=== PATIENT | female | born 1935 | race Caucasian/White ===

== ENCOUNTER → 2016-09-10 | Outpatient (CLI) | payer MEDICARE, OTHER ==
[~2016-09-10] MED LIST: ASP81TEC PO; CALC-656 PO; CEFD300C3 PO; DOCU100T7 PO; DOXY100C2 PO; FLC100T1 PO; HYDR-3583 PO; LEVO750T6 PO; METO-354 PO; MULT-1029 PO; OMEG1CAP51 PO; PREN1TAB39 PO; PRM25T PO; PROP1TAB77 PO; SULF1TAB38 PO; [UNRECOGNIZED DRUG - OTHER] PO
--- OUTSIDE RECORDS SUMMARY | 2016-09-10 14:47 | XMS REPORT | Continuity of Care Document ---
Author Author [facility] Organization [facility] Address Unknown Phone Unavailable Care Team Providers Care Junior Systems Engineer Name Role Phone DRE MCDOWELL DO PCP Insurance Providers Payer Name Policy Number Subscriber Name Relationship [employer] [id number] Anita Shah 18 Self / Same As Patient Comm Crossover Enter Ins Name [id number] Anita Shah 18 Self / Same As Patient Advance Directives Directive Response Recorded Date/Time Advance Directives Yes 04/10/13 11:18pm Health Care Power of Front Clerk No 04/10/13 11:18pm Organ Donor No 04/10/13 11:18pm Problems No problem information available. Medications Current Home Medications Medication Dose Units Route Directions Days/Qty Instructions Start Date Aspirin 81 Mg 81 Mg Oral Daily 03/06/10 Docusate Sodium 100 Mg 200 Mg Oral Daily 04/11/13 Mu-Vits-Min Th/Lycopene/Lutein 1 Each 1 Each Oral Daily 04/11/13 [Move Free Dietary ] 2 Tab Oral Daily TAKES 2 TABLETS OF MOVE FREE DIETARY SUPPLEMENT DAILY 04/11/13 Cefdinir (Omnicef) 300 Mg 1 Each Oral Twice A Day 04/12/13 Past Home Medications Medication Directions Ordered Status Calcium Carbonate/Vitamin D3 1 Each Tablet, 1 Each Oral 03/06/10 Discontinued Vits W-Ca,Fe,Fa(<1MG) 1 Each Tablet, 1 Each Oral 03/06/10 Discontinued Levofloxacin 750 Mg Tablet, 500 Mg Oral Daily 04/02/10 Discontinued Fluconazole 100 Mg Tablet, 1 Each Oral Daily 04/02/10 Discontinued Propoxyphene Hcl/Acetaminophen 1 Tab Tablet, 1 - 2 Each Oral Every 4HRS as needed 04/02/10 Discontinued Metoclopramide Hcl 10 Mg Tab, 1 Each Oral Qid Prn 04/02/10 Discontinued Promethazine Hcl 25 Mg Tablet, 1 Tab Oral Every 8HRS as needed 04/02/10 Discontinued Calcium Carbonate/Vitamin D3 1 Each Tablet, 1 Each Oral Daily 05/22/10 Discontinued Vits W-Ca,Fe,Fa(<1MG) 1 Each Tablet, 1 Each Oral Daily 05/22/10 Discontinued Metoclopramide Hcl 10 Mg Tab, 1 Each Oral Qid Prn 05/22/10 Discontinued [place]-3 Fatty Acids/Fish Oil 1 Each Capsule, 1 Each Oral Daily 09/12/10 Discontinued Acetaminophen/Hydrocodone Bitart 1 Tab Tab, 1 - 2 Ea Oral Q4hr Prn 09/23/10 Discontinued Trimethoprim/Sulfamethoxazole 1 Ea Tablet, 1 Ea Oral Twice A Day 09/23/10 Discontinued Doxycycline Hyclate (Vibramycin) 100 Mg Capsule, 1 Each Oral Twice A Day 23/06 Discontinued Social History Social History Problem Response Recorded Date/Time Alcohol Use Denies Use 04/10/2013 11:25pm Recreational Drug Use No 04/10/2013 11:25pm Recent Foreign Travel No 11/26/2015 12:55pm Sexually Transmitted Disease No 04/10/2013 11:25pm Hospital Discharge Instructions No hospital discharge instructions. Plan of Care Prescriptions See Medication Section Functional Status No functional status results. Allergies, Adverse Reactions, Alerts Allergen Type Severity Reaction Status Last Updated Sulfa (Sulfonamide Antibiotics) ([id number]) Adverse Reaction Mild HIVES Active 04/12/13 Morphine Adverse Reaction hallucinations Active 05/21/10 sulfamethoxazole ([id number]) Allergy Mild Active 04/10/13 Trimethoprim Allergy Mild Active 04/10/13 Immunizations Name Given Type Date of Pneumonia Vaccine 04/11/13 Historical Vital Signs No known vital signs results. Results No known relevant diagnostic tests, laboratory data and/or discharge summary. Procedures No known history of procedures. Encounters Encounter Location Arrival/Admit Date Discharge/Depart Date Attending Provider Discharged Recurring [facility] 12/20/15 10:54am 11:55am DRE MCDOWELL DO
--- NOTE | 2016-09-10 15:18 | Diagnostic Imaging Report ---
PROCEDURE: CT head without contrast. TECHNIQUE: Multiple contiguous axial images were obtained through the brain without the use of intravenous contrast. INDICATION: Vision loss . FINDINGS: There is no intracranial hemorrhage, edema or mass effect. The brain parenchyma appears unremarkable. No hydrocephalus. The visualized portions of the orbits and paranasal sinuses appear unremarkable. IMPRESSION: Unremarkable study. Dictated by: Dictated on workstation # [id number]
--- NOTE | 2016-09-10 15:45 | Diagnostic Imaging Report ---
PROCEDURE: US Carotid Duplex Bilateral. TECHNIQUE: Multiple real-time grayscale images were obtained over the carotid arteries in various projections bilaterally. Additional duplex Doppler and color Doppler images were also obtained. INDICATION: Right eye blindness. FINDINGS: The grayscale images demonstrate mild atherosclerotic plaque with color Doppler demonstrating patency of the common, internal and external carotid arteries bilaterally. There is antegrade flow seen in the vertebral arteries on both sides. Peak systolic velocities in the right ICA are 36, 70, and the 48 cm/s from proximal to distal and on the left 52, 83, and 68 cm/s. ICA/CCA ratios are up to 0.9 on the right and 0.8 on the left. IMPRESSION: Estimated underlying stenoses in the range of 0-40% bilaterally. Dictated by: Dictated on workstation # [id number]
== END ==
LOC: RAD 14:43
PROVIDERS: ATTEND Family Medicine
DX: H34.11 Central retinal artery occlusion, right eye (principal)
CPT/HCPCS: 70450; 93880

== ENCOUNTER → 2016-09-16 | Outpatient (CLI) | payer MEDICARE, OTHER ==
--- OUTSIDE RECORDS SUMMARY | 2016-09-16 13:35 | XMS REPORT | Continuity of Care Document ---
Author Author [facility] Organization [facility] Address Unknown Phone Unavailable Care Team Providers Care Director Of Estate Name Role Phone DRE MCDOWELL DO PCP Insurance Providers Payer Name Policy Number Subscriber Name Relationship [employer] [id number] Anita Shah 19 Self / Same As Patient Comm Crossover Enter Ins Name [id number] Anita Shah 19 Self / Same As Patient Advance Directives Directive Response Recorded Date/Time Advance Directives Yes 04/10/13 11:18pm Health Care Power of Baker Test No 04/10/13 11:18pm Organ Donor No 04/10/13 [...] 1 Each Oral Qid Prn 05/22/10 Discontinued [place]-3 Fatty Acids/Fish Oil 1 Each Capsule, 1 [...] Reaction Status Last Updated Sulfa (Sulfonamide Antibiotics) ([id number]) Adverse Reaction Mild HIVES Active 04/12/13 Morphine Adverse Reaction hallucinations Active 05/21/10 sulfamethoxazole ([id number]) Allergy Mild Active 04/10/13 Trimethoprim Allergy Mild Active 04/10/13 Immunizations Name Given Type Date of Pneumonia Vaccine 04/11/13 Historical Vital Signs No known vital signs results. Results No known relevant diagnostic tests, laboratory data and/or discharge summary. Procedures No known history of procedures. Encounters Encounter Location Arrival/Admit Date Discharge/Depart Date Attending Provider Discharged Recurring [facility] 12/20/15 10:54am 11:55am DRE MCDOWELL DO
--- NOTE | 2016-09-17 09:24 | ECHOCARDIOGRAPHY REPORT ---
PROCEDURE PHYSICIAN: CRISTOFER DAY DATE OF PROCEDURE: 09/16/2016 TWO DIMENSIONAL ECHOCARDIOGRAM REPORT PRIMARY PHYSICIAN: Dr. Fisher OTHER PHYSICIAN: REFERRING PHYSICIAN: ORDERING PHYSICIAN: Dr. Fisher INDICATION FOR THE PROCEDURE: Right retinal artery occlusion. MEASUREMENTS DERIVED VALUES LV DIAMETER (LAX) NORMALS NORMALS Diastolic 4.2 (3.6-5.2) Eject. Fract. (60%+/-6%) Systolic (2.3-3.9) Diastolic Vol. % Shortening (0.22-0.42) Systolic Vol. Aortic Root 3.6 IVS THICKNESS Diastolic 0.9 (0.6-1.1) LVPW THICKNESS Diastolic 1 (0.6-1.1) LA DIAMETER Systolic 3.4 (2.1-3.7) DESCRIPTION: Two-dimensional echocardiography showed normal global left ventricular systolic function with normal wall motion. Aortic, mitral and tricuspid valve leaflets show good leaflet excursion. There is no significant pericardial effusion. Chamber sizes appear to be within normal limits. There is no evidence of any significant intracardiac thrombus on this transthoracic echocardiographic study. However, the study is not adequate to exclude intracardiac thrombus. There is mild aortic valve sclerosis and calcification. Doppler imaging shows trivial to mild mitral and tricuspid regurgitation. There is no Doppler evidence of significant valvular stenosis. Pulmonary artery systolic pressure is estimated to be 25 to 30 mmHg. Mitral inflow is suggestive of grade I diastolic dysfunction of the left ventricle. There is no Doppler evidence of any significant valvular stenosis. Good subcostal views are not seen on this study. Inferior vena cava does not appear to be dilated. Pulmonary artery systolic pressure is estimated to be 25 to 30 mmHg. CONCLUSIONS: 1. Normal global left ventricular systolic function with an ejection fraction of approximately 60%. 2. Aortic valve sclerosis, mild to moderate, without evidence of any significant valvular stenosis. 3. Trivial to mild mitral and tricuspid regurgitation. 4. Mild diastolic dysfunction of the left ventricle is suggested on this study. 5. Pulmonary artery systolic pressure is estimated 25 to 30 mmHg. Job ID: [id number] Dictated Date: 09/16/2016 17:23:43 Straw Hat Machine Operator Date: 09/17/2016 09:15:18 / leslie
== END ==
LOC: CARD 11:44
PROVIDERS: ATTEND Family Medicine
DX: H34.11 Central retinal artery occlusion, right eye (principal)
CPT/HCPCS: 93306

== ENCOUNTER 2017-01-05 23:25 | Inpatient (IN) | payer MEDICARE, OTHER ==
[~2017-01-05] VITALS: Ht 152.4 cm; Wt 76.2 kg
[2017-01-05] MEDS ORDERED: fentaNYL INJECTION 100 MCG/2 ML AMP IVP STA (23:28)
[2017-01-05] MEDS ORDERED: NS IV 500 ML 500 ML IV ONE (23:28)
[2017-01-05 23:36] LABS: BASOPHILS % (AUTO) 0 % (0-10); EOSINOPHILS # (AUTO) 0.2 10^3/uL (0.0-0.3); EOSINOPHILS % (AUTO) 3 % (0-10); LYMPHOCYTES # (AUTO) 2.2 X 10^3 (1.0-4.0); LYMPHOCYTES % (AUTO) 35 % (12-44); MEAN CORPUSCULAR HEMOGLOBIN 31 PG (25-34); MEAN CORPUSCULAR HGB CONC 32 G/DL (32-36); MEAN CORPUSCULAR VOLUME 95 FL (80-99); MEAN PLATELET VOLUME 10.6 FL (7.4-10.4); MONOCYTES # (AUTO) 0.6 X 10^3 (0.0-1.0); MONOCYTES % (AUTO) 9 % (0-12); NEUTROPHILS # (AUTO) 3.5 X 10^3 (1.8-7.8); NEUTROPHILS % (AUTO) 54 % (42-75); PLATELET COUNT 262 10^3/uL (130-400); RED BLOOD COUNT 4.29 10^6/uL (4.35-5.85); RED CELL DISTRIBUTION WIDTH 14.1 % (10.0-14.5); WHITE BLOOD COUNT 6.5 10^3/uL (4.3-11.0)
[2017-01-05 23:44] LABS: BILIRUBIN,URINE NEGATIVE (NEGATIVE); KETONES,URINE NEGATIVE (NEGATIVE); LEUKOCYTE ESTERASE ,URINE 2+ (NEGATIVE); NITRITE,URINE NEGATIVE (NEGATIVE); PH,URINE 6.5 (5-9); PROTEIN,URINE NEGATIVE (NEGATIVE); UROBILINOGEN,URINE NORMAL (NORMAL)
[2017-01-05 23:51] LABS: HYALINE CASTS, URINE RARE /LPF; SQUAMOUS EPITHELIAL CELL,UR RARE /HPF; WBC,URINE 0-2 /HPF
[2017-01-05 23:55] LABS: ALBUMIN 3.9 G/DL (3.2-4.5); BILIRUBIN,TOTAL 0.8 MG/DL (0.1-1.0); CALCIUM 9.4 MG/DL (8.5-10.1); CREATININE SERUM 1.01 MG/DL (0.60-1.30); MAGNESIUM 2.3 MG/DL (1.8-2.4); TOTAL PROTEIN 6.4 G/DL (6.4-8.2)
[2017-01-06] VITALS (9 sets, daily range): BP systolic 131–190; BP diastolic 69–89
--- NOTE | 2017-01-06 00:04 | ED Abdominal Pain ---
General Chief Complaint: Abdominal/GI Problems Stated Complaint: ABD PAIN Nursing Triage Note: upper abdominal pain radiating to back Sepsis Screen: No Definite Risk Source of Information: Patient Exam Limitations: No Limitations History of Present Illness Time Seen By Provider: 23:28 Initial Comments Here by EMS with complaint of abdominal pain left lower and central that radiates to her back and shoulder blades. Also has some pain in the upper abdominal quadrants. Does complain of nausea without vomiting. Denies dysuria. Denies blood in bowel or stool. Timing/Duration: 4-6 Hours Severity/Quality: Moderate Location: LLQ, Suprapubic Radiation: LUQ, Back Activities at Onset: None Modifying Factors: Worsens With Movement Associated Symptoms: No Back Pain, No Chest Pain, No Fever/Chills, Nausea/ Vomiting, No Weakness Allergies and Home Medications Allergies Coded Allergies: Sulfamethoxazole (Verified Allergy, Mild, 04/10/13) trimethoprim (Verified Allergy, Mild, 04/10/13) Sulfa (Sulfonamide Antibiotics) (Verified Adverse Reaction, Mild, HIVES, ) morphine (Unverified Adverse Reaction, hallucinations, 05/21/10) Home Medications Aspirin 81 Mg Tabec, 81 MG PO DAILY, (Reported) Cefdinir 300 Mg Capsule, 1 EACH PO BID, #10 Prescribed by: NERI RYAN on 04/12/13 1536 Docusate Sodium 100 Mg Tablet, 200 MG PO DAILY, (Reported) Mu-Vits-Min Th/Lycopene/Lutein 1 Each Tablet, 1 EACH PO DAILY, (Reported) [Move Free Dietary ] , 2 TAB PO DAILY, (Reported) TAKES 2 TABLETS OF MOVE FREE DIETARY SUPPLEMENT DAILY Review of Systems Constitutional: see HPI, No chills, No fever EENTM: No Symptoms Reported Respiratory: No Symptoms Reported Cardiovascular: No Symptoms Reported Gastrointestinal: See HPI, Abdominal Pain, Denies Constipated, Denies Diarrhea , Nausea, Denies Rectal Bleeding, Denies Vomiting Genitourinary: No Symptoms Reported Musculoskeletal: no symptoms reported Skin: no symptoms reported Psychiatric/Neurological: No Symptoms Reported Endocrine: No Symptoms Reported All Other Systems Reviewed Negative Unless Noted: Yes Past Oljbzqa-Zzxhqo-Mnmvwv Hx Patient Social History Alcohol Use: Denies Use Recreational Drug Use: No Smoking Status: Never a Smoker 2nd Hand Smoke Exposure: No Recent Foreign Travel: No Contact w/Someone Who Travel: No Recent Infectious Disease Expo: No Recent Hopitalizations: No Immunizations Up To Date Date of Pneumonia Vaccine: Apr 11, 2013 Seasonal Allergies Seasonal Allergies: No Surgeries HX Surgeries: Yes (HERNIAS, VEINS TAKEN OUT OF RT LEG) Respiratory Hx Respiratory Disorders: No Cardiovascular Hx 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 ) Neurological Hx Neurological Disorders: No Reproductive System : No Hx Reproductive Disorders: No Sexually Transmitted Disease: 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 Genitourinary Hx Genitourinary Disorders: Yes Genitourinary Disorders: UTI-Chronic Gastrointestinal Hx Gastrointestinal Disorders: Yes Gastrointestinal Disorders: Gastroesophageal Reflux Musculoskeletal Hx Musculoskeletal Disorders: Yes Musculoskeletal Disorders: Arthritis Endocrine Hx Endocrine Disorders: No HEENT HX ENT Disorders: Yes (IMPLANT RIGHT EYE- REMOVAL OF CATARACT ) HEENT Disorders: Macular Degeneration Cancer Hx Cancer: No Psychosocial Hx Psychiatric Problems: No Integumentary HX Skin/Integumentary Disorder: No Blood Transfusions Hx Blood Disorders: No Reviewed Nursing Assessment Reviewed/Agree w Nursing PMH: Yes Family Medical History Significant Family History: No Pertinent Family Hx Physical Exam Vital Signs VS - Last 72 Hours, by Label 01/05/17 01/06/17 23:28 00:46 Temp 98.5 Pulse 80 77 Resp 18 16 B/P (MAP) 193/85 163/73 Pulse Ox 99 98 O2 Delivery Room Air Room Air Capillary Refill : Less Than 3 Seconds General Appearance: WD/WN, no apparent distress HEENT: PERRL/EOMI, pharynx normal Neck: full range of motion, supple Respiratory: lungs clear, normal breath sounds Cardiovascular: regular rate, rhythm, no murmur Peripheral Pulses: 2+ Dorsalis Pedis (R), 2+ Left Dors-Pedis (L), 2+ Radial Pulses (R), 2+ Radial Pulses (L) Gastrointestinal: soft, No guarding, No rebound, tenderness (suprapubic and left lower quadrant as well as left upper quadrant) Extremities: non-tender, normal inspection Back: normal inspection, no CVA tenderness, no vertebral tenderness Neurologic/Psychiatric: alert, oriented x 3 Skin: normal color, warm/dry Progress/Results/Core Measures Results/Orders Lab Results Laboratory Tests Test 01/05/17 23:30 01/05/17 23:35 Range/Units White Blood Count 6.5 4.3-11.0 10^3/uL Red Blood Count 4.29 L 4.35-5.85 10^6/uL Hemoglobin 13.1 11.5-16.0 G/DL Hematocrit 41 35-52 % Mean Corpuscular Volume 95 80-99 FL Mean Corpuscular Hemoglobin 31 25-34 PG Mean Corpuscular Hemoglobin Concent 32 32-36 G/DL Red Cell Distribution Width 14.1 10.0-14.5 % Platelet Count 262 130-400 10^3/uL Mean Platelet Volume 10.6 H 7.4-10.4 FL Neutrophils (%) (Auto) 54 42-75 % Lymphocytes (%) (Auto) 35 12-44 % Monocytes (%) (Auto) 9 0-12 % Eosinophils (%) (Auto) 3 0-10 % Basophils (%) (Auto) 0 0-10 % Neutrophils # (Auto) 3.5 1.8-7.8 X 10^3 Lymphocytes # (Auto) 2.2 1.0-4.0 X 10^3 Monocytes # (Auto) 0.6 0.0-1.0 X 10^3 Eosinophils # (Auto) 0.2 0.0-0.3 10^3/uL Basophils # (Auto) 0.0 0.0-0.1 10^3/uL Sodium Level 142 135-145 MMOL/L Potassium Level 4.0 3.6-5.0 MMOL/L Chloride Level 106 98-107 MMOL/L Carbon Dioxide Level 24 21-32 MMOL/L Anion Gap 12 5-14 MMOL/L Blood Urea Nitrogen 17 7-18 MG/DL Creatinine 1.01 0.60-1.30 MG/DL Estimat Glomerular Filtration Rate 53 BUN/Creatinine Ratio 17 Glucose Level 109 H 70-105 MG/DL Calcium Level 9.4 8.5-10.1 MG/DL Magnesium Level 2.3 1.8-2.4 MG/DL Total Bilirubin 0.8 0.1-1.0 MG/DL Aspartate Amino Transf (AST/SGOT) 17 5-34 U/L Alanine Aminotransferase (ALT/SGPT) 13 0-55 U/L Alkaline Phosphatase 52 40-136 U/L Total Protein 6.4 6.4-8.2 G/DL Albumin 3.9 3.2-4.5 G/DL Amylase Level 94 25-125 U/L Lipase 48 8-78 U/L Urine Color YELLOW Urine Clarity CLEAR Urine pH 6.5 5-9 Urine Specific [place] 1.010 L 1.016-1.022 Urine Protein NEGATIVE NEGATIVE Urine Glucose (UA) NEGATIVE NEGATIVE Urine Ketones NEGATIVE NEGATIVE Urine Nitrite NEGATIVE NEGATIVE Urine Bilirubin NEGATIVE NEGATIVE Urine Urobilinogen NORMAL NORMAL MG/DL Urine Leukocyte Esterase 2+ H NEGATIVE Urine RBC (Auto) NEGATIVE NEGATIVE Urine RBC NONE /HPF Urine WBC 0-2 /HPF Urine Squamous Epithelial Cells RARE /HPF Urine Crystals NONE /LPF Urine Bacteria TRACE /HPF Urine Casts PRESENT /LPF Urine Hyaline Casts RARE /LPF Urine Mucus NEGATIVE /LPF Urine Culture Indicated NO My Orders Orders - ARMINDA CALDERON MD Amylase (01/05/17 23:28) Cbc With Automated Diff (01/05/17:28) Comprehensive Metabolic Panel (01/05/17:28) Lipase (01/05/17 23:28) Magnesium (01/05/17 23:28) Ua Culture If Indicated (01/05/17 23:28) Saline Lock/Iv-Start (01/05/17 23:28) Ns Iv 500 Ml (Sodium Chloride 0.9%) (01/05/17 23:28) Fentanyl Injection (Sublimaze Injection (01/05/17 23:28) Ct Abdomen/Pelvis W (01/06/17 00:18) Ns Iv 500 Ml (Sodium Chloride 0.9%) (01/06/17 00:18) Iohexol Injection (Omnipaque 350 Mg/Ml 1 (01/06/17 00:45) Ns (Ivpb) (Sodium Chloride 0.9% Ivpb Bag (01/06/17 00:45) Fentanyl Injection (Sublimaze Injection (01/06/17 01:09) Medications Given in ED Current Medications Medications Dose Ordered Sig/Semaj Route Start Time Stop Time Status Last Admin Dose Admin Iohexol 100 ml ONCE ONCE IV 01/06/17 00:45 01/06/17 00:46 DC 01/06/17 00:39 100 ML Sodium Chloride 100 ml ONCE ONCE IV 01/06/17 00:45 01/06/17 00:46 DC 01/06/17 00:39 80 ML Sodium Chloride 500 ml @ 0 mls/hr Q0M ONCE IV 01/05/17 23:28 01/05/17 23:30 DC 01/05/17 23:36 0 MLS/HR Sodium Chloride 500 ml @ 0 mls/hr Q0M ONCE IV 01/06/17 00:18 01/06/17 00:19 DC 01/06/17 00:45 0 MLS/HR Vital Signs/I&O Vital Sign - Last 12Hours 01/05/17 01/06/17 23:28 00:46 Temp 98.5 Pulse 80 77 Resp 18 16 B/P (MAP) 193/85 163/73 Pulse Ox 99 98 O2 Delivery Room Air Room Air Blood Pressure Mean: 121 Progress Note : Progress Note Seen and evaluated on arrival by EMS. IV by EMS. Labs, UA, normal saline 500 mL bolus. Patient received 4 mg of Zofran IV by EMS and that did help with her nausea but still has pain. Fentanyl 50 g IV ordered. Anticipate CT scan pending labs. Monitor patient. 0108: CT results reviewed. Patient still with some pain. Concerns for small bowel obstruction. Patient mud mill tender along the left abdomen. Fentanyl 25 g IV. Case discussed with Dr. Fisher. Admit, inpatient status for small bowel obstruction. Consult surgeon. Dr. Bill dickey. Patient agrees to admission. Diagnostic Imaging Diagonstic Imaging: CT Plain Films/CT/US/NM/MRI: abdomen, pelvis Comments Clustering of some distended small bowel loops may be from evolving bowel obstruction. Edema/fluid in the knees and tearing. No extraluminal air or pneumatosis. Reviewed: Reviewed Night [facility] Study, Reviewed by Me Departure Communication Time/Spoke to Admitting Phy: 01:08 Time/Spoke to Consulting Physi: 01:15 Impression Impression: Primary Impression: Small bowel obstruction Disposition: 09 ADMITTED INPATIENT Condition: Stable Decision to Admit Reason: Admit from ER (General) Decision to Admit/Date: Jan 06, 2017 Time/Decision to Admit Time: 01:08 Departure-Patient Inst. Referrals: DRE FISHER DO (PCP/Family) Primary Care Physician ARMINDA CALDERON MD Jan 06, 2017 00:04
[2017-01-06] MEDS ORDERED: NS IV 500 ML 500 ML IV ONE (00:18)
[2017-01-06] MEDS ORDERED: IOHEXOL 350 MG/ML 100 ML (OMNIPAQUE 350) VIAL IV ONE (00:45)
[2017-01-06] MEDS ORDERED: NS 100 ML (IVPB) BAG IV ONE (00:45)
[2017-01-06] MEDS ORDERED: fentaNYL INJECTION 100 MCG/2 ML AMP IVP STA (01:09)
[2017-01-06] MEDS ORDERED: NS IV 1000 ML 1,000 ML ONE (01:50)
[2017-01-06] MEDS ORDERED: CATHETER FLUSH 10 ML SYR IV PRN (04:45)
[2017-01-06] MEDS: CATHETER FLUSH 10 ML SYR IV SCH ×3 (05:08→21:24)
[2017-01-06 05:47] LABS: BASOPHILS % (AUTO) 1 % (0-10); EOSINOPHILS # (AUTO) 0.1 10^3/uL (0.0-0.3); EOSINOPHILS % (AUTO) 1 % (0-10); LYMPHOCYTES # (AUTO) 1.5 X 10^3 (1.0-4.0); LYMPHOCYTES % (AUTO) 34 % (12-44); MEAN CORPUSCULAR HEMOGLOBIN 31 PG (25-34); MEAN CORPUSCULAR HGB CONC 32 G/DL (32-36); MEAN CORPUSCULAR VOLUME 95 FL (80-99); MEAN PLATELET VOLUME 10.7 FL (7.4-10.4); MONOCYTES # (AUTO) 0.4 X 10^3 (0.0-1.0); MONOCYTES % (AUTO) 9 % (0-12); NEUTROPHILS # (AUTO) 2.4 X 10^3 (1.8-7.8); NEUTROPHILS % (AUTO) 55 % (42-75); PLATELET COUNT 226 10^3/uL (130-400); RED BLOOD COUNT 4.02 10^6/uL (4.35-5.85); WHITE BLOOD COUNT 4.5 10^3/uL (4.3-11.0)
[2017-01-06 06:11] LABS: ALANINE AMINOTRANSFERASE 12 U/L (0-55); ALBUMIN 3.3 G/DL (3.2-4.5); ANION GAP 8 MMOL/L (5-14); ASPARTATE AMINO TRANSFERASE 13 U/L (5-34); BILIRUBIN,TOTAL 0.8 MG/DL (0.1-1.0); BLOOD UREA NITROGEN 13 MG/DL (7-18); BUN/CREATININE RATIO 15; CALCIUM 8.3 MG/DL (8.5-10.1); CARBON DIOXIDE 22 MMOL/L (21-32); CHLORIDE 111 MMOL/L (98-107); CREATININE SERUM 0.85 MG/DL (0.60-1.30); GFR ESTIMATED > 60; GLUCOSE 92 MG/DL (70-105); POTASSIUM 4.2 MMOL/L (3.6-5.0); SODIUM 141 MMOL/L (135-145); TOTAL PROTEIN 5.3 G/DL (6.4-8.2)
--- NOTE | 2017-01-06 07:28 | Diagnostic Imaging Report ---
PROCEDURE: CT abdomen and pelvis with contrast. TECHNIQUE: Multiple contiguous axial images were obtained through the abdomen and pelvis after administration of intravenous contrast. INDICATION: Upper abdominal pain. Comparison is made to the examination of 04/10/2013. 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 The gallbladder is surgically absent. Extrapelvic biliary ductal dilatation is similar to the previous exam. There are occasional calcified granulomas in the spleen. No pancreatic, adrenal gland or renal lesion is detected. There is mild to moderate dilatation of fluid containing small bowel in the left abdomen. This appears to transition to decompressed loops in the distal ileum. Note is made of small hiatal hernia. No focal fluid collection is identified in the abdomen or pelvis. IMPRESSION: [id number] dilatation of fluid-filled small bowel extending from the jejunum to distal ileum. This could be related to localized ileus or partial distal small bowel obstruction. Small bowel series may be of value. Dictated by: Dictated on workstation # [id number]
[2017-01-06] MEDS ORDERED: CHOL100045 PO (09:33)
[2017-01-06] MEDS ORDERED: VITA1CAP PO (09:33)
--- NOTE | 2017-01-06 11:18 | Consultation ---
History of Present Illness History of Present Illness Patient Consulted On(len/time) 01/06/17 11:15 Reason for Visit: acute onset of central abdominal pain History of Present Illness I began asked by Dr. Fisher to see this lady admitted with acute onset of central abdominal pain with CT scan showing features of distal small bowel obstruction. 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 Allergies and Home Medications Allergies Coded Allergies: sulfamethoxazole (Verified Allergy, Mild, 04/10/13) trimethoprim (Verified Allergy, Mild, 04/10/13) Sulfa (Sulfonamide Antibiotics) (Verified Adverse Reaction, Mild, HIVES, ) morphine (Unverified Adverse Reaction, Unknown, hallucinations, 01/06/17) Home Medications Aspirin 81 Mg Tabec, 81 MG PO DAILY, (Reported) Cholecalciferol (Vitamin D3) 1,000 Unit Tablet, 1,000 UNIT PO DAILY, (Reported) Docusate Sodium 100 Mg Tablet, 200 MG PO DAILY, (Reported) Mu-Vits-Min Th/Lycopene/Lutein 1 Each Tablet, 1 EACH PO DAILY, (Reported) Vitamin B Complex 1 Each Capsule, 1 EACH PO DAILY, (Reported) Past Wodigri-Imiwjo-Qwzpsn Hx Patient Social History Alcohol Use: Denies Use Recreational Drug Use: No Smoking Status: Never a Smoker 2nd Hand Smoke Exposure: No Recent Foreign Travel: No Contact w/Someone Who Travel: No Recent Infectious Disease Expo: No Recent Hopitalizations: No Physical Abuse Screen: No Sexual Abuse: No Immunizations Up To Date PED Vaccines UTD: No Date of Pneumonia Vaccine: May 08, 2015 Seasonal Allergies Seasonal Allergies: No Surgeries HX Surgeries: Yes (HERNIAS, VEINS TAKEN OUT OF RT LEG) Surgeries: Gallbladder, Hysterectomy Respiratory Hx Respiratory Disorders: No Cardiovascular Hx 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 ) Neurological Hx Neurological Disorders: No Reproductive System : No Hx Reproductive Disorders: No Sexually 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 Genitourinary Hx Genitourinary Disorders: Yes Genitourinary Disorders: UTI-Chronic Gastrointestinal Hx Gastrointestinal Disorders: Yes Gastrointestinal Disorders: Gastroesophageal Reflux, Obstructive Bowel Musculoskeletal Hx Musculoskeletal Disorders: Yes Musculoskeletal Disorders: Arthritis Endocrine Hx Endocrine Disorders: No HEENT HX ENT Disorders: Yes (IMPLANT RIGHT EYE- REMOVAL OF CATARACT ) HEENT Disorders: Macular Degeneration Loss of Vision: Bilateral Hearing Impairment: Denies Cancer Hx Cancer: No Psychosocial Hx Psychiatric Problems: No Integumentary HX Skin/Integumentary Disorder: No Blood Transfusions Hx Blood Disorders: No Adverse Reaction to a Blood Tr: No Reviewed Nursing Assessment Reviewed/Agree w Nursing PMH: Yes Family Medical History Significant Family History: No Pertinent Family Hx Family Medial History: Colon cancer G8 SISTER, G8 SISTER, G8 BROTHER, G8 BROTHER, G8 BROTHER, FH: breast cancer G8 SISTER FH: lung cancer G8 BROTHER, FH: myocardial infarction 19 FATHER, , Age:74 FH: thyroid cancer DAUGHTER Review of Systems-General Date Seen by Provider: Jan 06, 2017 Time Seen by Provider: 07:55 Constitutional: no symptoms reported EENTM: no symptoms reported Respiratory: no symptoms reported Cardiovascular: no symptoms reported Gastrointestinal: abdominal pain (LLQ), loss of appetite Genitourinary: no symptoms reported Skin: no symptoms reported Psychiatric/Neurological: No Symptoms Reported Physical Exam-General Problems Physical Exam Vital Signs Vital Sign - Last 12Hours 01/05/17 01/06/17 23:28 01:50 Temp 98.5 Pulse 80 Resp 18 B/P (MAP) 193/85 Pulse Ox 99 O2 Delivery Room Air O2 Flow Rate 0.00 Capillary Refill : Less Than 3 Seconds General Appearance: mild distress Neck: full range of motion Respiratory: lungs clear Cardiovascular: regular rate, rhythm Gastrointestinal: soft Extremities: normal range of motion Neurologic/Psychiatric: alert, oriented x 3 Skin: warm/dry Comments Lower midline scar without an incisional hernia. No abdominal distention. No tenderness. Assessment/Plan Assessment/Plan Admission Diagnosis/Plan Lady with radiologic evidence of distal small bowel obstruction. Possibly adhesive in nature. Will treat conservatively with nasogastric decompression. Subsequently, a contrast small bowel study will be obtained Clinical Quality Measures DVT/VTE Risk/Contraindication: Risk Factor Score Per Nursin RFS Level Per Nursing on Admit: 4+=Very High CHEN DE LA FUENTE MD Jan 06, 2017 11:18
[2017-01-06] MEDS ORDERED: LORazepam INJ 2 MG/ML (ATIVAN) VIAL IVP STA (12:04)
[2017-01-06] MEDS: NS IV 1000 ML 1,000 ML IV SCH ×3 (12:13→22:09)
[2017-01-06] MEDS ORDERED: CHLORASEPTIC SPRAY 177 ML LIQUID MC PRN (13:45)
[2017-01-06] MEDS: fentaNYL INJECTION 100 MCG/2 ML AMP IV PRN ×2 (16:53→21:43)
[2017-01-06] MEDS ORDERED: meTOprolol 5 MG/5 ML (LOPRESSOR) VIAL IV NR (19:15)
--- NOTE | 2017-01-06 19:20 | History & Physicial ---
History of Present Illness History of Present Illness Reason for visit/HPI This is an 81 year old female who presented to the emergency room with complaints of abdominal pain. The pain started at about 8pm on 01/05/17 in the upper abdomen after she had consumed a snack of yogurt and 6 cookies. She stated that the pain was initially across her upper abdomen radiating to her back around both sides but then the pain moved down to her lower abdominal area. She described the pain as coming in waves like labor pains. She did have some nausea but no vomiting. She reported that her last bowel movement was on 01/05/17 at about 3PM. She has a history of extensive abdominal surgery in the past due to iatrogenic bowel injury during a hysterectomy. A CT scan done in the emergency room showed a distal small bowel obstruction. The patient will be admitted for gut rest, abdominal decompression and surgical consultation. Date of Admission Jan 06, 2017 at 01:12 Time Seen by Provider: 08:45 I consulted on this patient on 01/06/17 19:15 Attending Physician Jessica Fisher DO Admitting Physician Jessica Fisher DO Consult Allergies and Home Medications Allergies Coded Allergies: sulfamethoxazole (Verified Allergy, Mild, 04/10/13) trimethoprim (Verified Allergy, Mild, 04/10/13) Sulfa (Sulfonamide Antibiotics) (Verified Adverse Reaction, Mild, HIVES, ) morphine (Unverified Adverse Reaction, Unknown, hallucinations, 01/06/17) Home Medications Aspirin 81 Mg Tabec, 81 MG PO DAILY, (Reported) Cholecalciferol (Vitamin D3) 1,000 Unit Tablet, 1,000 UNIT PO DAILY, (Reported) Docusate Sodium 100 Mg Tablet, 200 MG PO DAILY, (Reported) Mu-Vits-Min Th/Lycopene/Lutein 1 Each Tablet, 1 EACH PO DAILY, (Reported) Vitamin B Complex 1 Each Capsule, 1 EACH PO DAILY, (Reported) Past Crkmnhy-Iuckgt-Iqsiam Hx Patient Social History Alcohol Use: Denies Use Recreational Drug Use: No Smoking Status: Never a Smoker 2nd Hand Smoke Exposure: No Physical Abuse Screen: No Sexual Abuse: No Recent Foreign Travel: No Contact w/other who traveled: No Recent Hopitalizations: No Recent Infectious Disease Expo: No Immunizations Up To Date Date of Pneumonia Vaccine: May 08, 2015 Seasonal Allergies Seasonal Allergies: No Surgeries HX Surgeries: Yes (HERNIAS, VEINS TAKEN OUT OF RT LEG) Surgeries: Gallbladder, Hysterectomy Respiratory Hx Respiratory Disorders: No Cardiovascular Hx 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 ) Neurological Hx Neurological Disorders: No Reproductive System : No Hx Reproductive Disorders: No Sexually Transmitted Disease: No Genitourinary Hx Genitourinary Disorders: Yes Genitourinary Disorders: UTI-Chronic Gastrointestinal Hx Gastrointestinal Disorders: Yes Gastrointestinal Disorders: Gastroesophageal Reflux, Obstructive Bowel Musculoskeletal Hx Musculoskeletal Disorders: Yes Musculoskeletal Disorders: Arthritis Endocrine Hx Endocrine Disorders: No HEENT HX ENT Disorders: Yes (IMPLANT RIGHT EYE- REMOVAL OF CATARACT ) HEENT Disorders: Macular Degeneration Loss of Vision: Bilateral Hearing Impairment: Denies Cancer Hx Cancer: No Psychosocial Hx Psychiatric Problems: No Integumentary HX Skin/Integumentary Disorder: No Blood Transfusions Hx Blood Disorders: No Adverse Reaction to a Blood Tr: No Reviewed Nursing Assessment Reviewed/Agree w Nursing PMH: Yes Family Medical History Significant Family History: No Pertinent Family Hx Family Hx: Colon cancer G8 SISTER, G8 SISTER, G8 BROTHER, G8 BROTHER, G8 BROTHER, FH: breast cancer G8 SISTER FH: lung cancer G8 BROTHER, FH: myocardial infarction 19 FATHER, , Age:74 FH: thyroid cancer DAUGHTER Constitutional: weakness EENTM: No blurred vision, No dental problems, No double vision, No ear discharge, No ear pain, No epistaxis, No eye pain, No hearing loss, No hoarseness, No mouth pain, No mouth swelling, No no symptoms reported, No nose congestion, No nose pain, No other, No see HPI, No tearing, No throat pain, No throat swelling, No vision loss Respiratory: No no symptoms reported, No see HPI, No cough, No dyspnea on exertion, No hemoptysis, No orthopnea, No phlegm, No short of breath, No stridor , No wheezing, No other Cardiovascular: No no symptoms reported, No see HPI, No chest pain, No edema, No Hx of Intervention, No palpitations, No syncope, No vascular heart diseas, No other Gastrointestinal: abdominal pain, nausea Genitourinary: No no symptoms reported, No see HPI, No decreased output, No discharge, No dysuria, No frequency, No hematuria, No hesitancy, No incontinence , No nocturia, No pain, No other Musculoskeletal: back pain Skin: No no symptoms reported, No see HPI, No change in color, No change in hair/nails, No dryness, No hx of skin cancer, No lesions, No lumps, No pruritus , No rash, No other Psychiatric/Neurological: Weakness Physical Exam Vital Signs Vital Sign - Last 12Hours 01/05/17 01/06/17 23:28 01:50 Temp 98.5 Pulse 80 Resp 18 B/P (MAP) 193/85 Pulse Ox 99 O2 Delivery Room Air O2 Flow Rate 0.00 Capillary Refill : Less Than 3 Seconds General Appearance: No Apparent Distress HEENT: Normal ENT Inspection Neck: Non Tender, Supple Respiratory: Lungs Clear Cardiovascular: Regular Rate, Rhythm, Systolic Murmur, Gallop/S4 Gastrointestinal: Soft, Abnormal Bowel Sounds (hypoactive), Tenderness (LLQ and suprapubic) Rectal: Deferred Back: No CVA Tenderness Extremity: Non Tender, No Calf Tenderness, No Pedal Edema Neurologic/Psychiatric: Alert, Oriented x3 Skin: Normal Color, Warm/Dry Comments Laboratory Tests 01/05/17 23:30: White Blood Count 6.5, Red Blood Count 4.29L, Hemoglobin 13.1, Hematocrit 41, Mean Corpuscular Volume 95, Mean Corpuscular Hemoglobin 31, Mean Corpuscular Hemoglobin Concent 32, Red Cell Distribution Width 14.1, Platelet Count 262, Mean Platelet Volume 10.6H, Neutrophils (%) (Auto) 54, Lymphocytes (%) (Auto) 35 , Monocytes (%) (Auto) 9, Eosinophils (%) (Auto) 3, Basophils (%) (Auto) 0, Neutrophils # (Auto) 3.5, Lymphocytes # (Auto) 2.2, Monocytes # (Auto) 0.6, Eosinophils # (Auto) 0.2, Basophils # (Auto) 0.0, Sodium Level 142, Potassium Level 4.0, Chloride Level 106, Carbon Dioxide Level 24, Anion Gap 12, Blood Urea Nitrogen 17, Creatinine 1.01, Estimat Glomerular Filtration Rate 53, BUN/ Creatinine Ratio 17, Glucose Level 109H, Calcium Level 9.4, Magnesium Level 2.3 , Total Bilirubin 0.8, Aspartate Amino Transf (AST/SGOT) 17, Alanine Aminotransferase (ALT/SGPT) 13, Alkaline Phosphatase 52, Total Protein 6.4, Albumin 3.9, Amylase Level 94, Lipase 48 01/05/17 23:35: Urine Color YELLOW, Urine Clarity CLEAR, Urine pH 6.5, Urine Specific [place] 1.010L, Urine Protein NEGATIVE, Urine Glucose (UA) NEGATIVE, Urine Ketones NEGATIVE, Urine Nitrite NEGATIVE, Urine Bilirubin NEGATIVE, Urine Urobilinogen NORMAL, Urine Leukocyte Esterase 2+H, Urine RBC (Auto) NEGATIVE, Urine RBC NONE , Urine WBC 0-2, Urine Squamous Epithelial Cells RARE, Urine Crystals NONE, Urine Bacteria TRACE, Urine Casts PRESENT, Urine Hyaline Casts RARE, Urine Mucus NEGATIVE, Urine Culture Indicated NO 01/06/17 05:05: White Blood Count 4.5, Red Blood Count 4.02L, Hemoglobin 12.3, Hematocrit 38, Mean Corpuscular Volume 95, Mean Corpuscular Hemoglobin 31, Mean Corpuscular Hemoglobin Concent 32, Red Cell Distribution Width 14.0, Platelet Count 226, Mean Platelet Volume 10.7H, Neutrophils (%) (Auto) 55, Lymphocytes (%) (Auto) 34 , Monocytes (%) (Auto) 9, Eosinophils (%) (Auto) 1, Basophils (%) (Auto) 1, Neutrophils # (Auto) 2.4, Lymphocytes # (Auto) 1.5, Monocytes # (Auto) 0.4, Eosinophils # (Auto) 0.1, Basophils # (Auto) 0.0, Sodium Level 141, Potassium Level 4.2, Chloride Level 111H, Carbon Dioxide Level 22, Anion Gap 8, Blood Urea Nitrogen 13, Creatinine 0.85, Estimat Glomerular Filtration Rate > 60, BUN/ Creatinine Ratio 15, Glucose Level 92, Calcium Level 8.3L, Total Bilirubin 0.8, Aspartate Amino Transf (AST/SGOT) 13, Alanine Aminotransferase (ALT/SGPT) 12, Alkaline Phosphatase 43, Total Protein 5.3L, Albumin 3.3 Assessment/Plan Assessment and Plan 1. Distal Small Bowel Obstruction--gut rest, decompression with NG tube, pain control, SBFT per surgery, surgery consult 2. Hypertension--will do IV lopressor since NPO Problems: Clinical Quality Measures DVT/VTE Risk/Contraindication: Risk Factor Score Per Nursin RFS Level Per Nursing on Admit: 4+=Very High JESSICA FISHER DO Jan 06, 2017 19:20
[2017-01-06] MEDS: ONDANSETRON 4 MG/2 ML (SDV) Z0FRAN IV PRN ×2 (19:50→23:49)
[2017-01-06] MEDS: meTOprolol 5 MG/5 ML (LOPRESSOR) VIAL IV SCH (23:50)
[2017-01-07] MEDS: fentaNYL INJECTION 100 MCG/2 ML AMP IV PRN ×2 (03:13→06:18)
[2017-01-07] MEDS: ONDANSETRON 4 MG/2 ML (SDV) Z0FRAN IV PRN (03:50)
[2017-01-07 04:45] VITALS: BP 146/83
[2017-01-07] MEDS: meTOprolol 5 MG/5 ML (LOPRESSOR) VIAL IV SCH ×3 (05:45→18:31)
[2017-01-07] MEDS: CATHETER FLUSH 10 ML SYR IV SCH ×3 (06:18→22:03)
[2017-01-07 08:30] VITALS: BP 166/92
[2017-01-07] MEDS: NS IV 1000 ML 1,000 ML IV SCH (08:37)
[2017-01-07] MEDS ORDERED: DIATRIZOATE MEGLUM/SODIUM 37% 120 ML (GASTROGRAFIN) NG ONE (10:30)
--- NOTE | 2017-01-07 10:45 | Diagnostic Imaging Report ---
EXAMINATION: Gastrografin small bowel follow through. INDICATION: Dilated bowel loops seen on CT scan. TECHNIQUE: C.O.D. Clerk image of the abdomen was performed. Subsequently, the patient was given Gastrografin through an NG tube and serial images of the abdomen were obtained. FINDINGS: C.O.D. Clerk image of the abdomen demonstrates small amount of fecal material. The NG tube is the seen in the distal stomach. Surgical clips in the upper right side of the abdomen noted. There is prompt gastric emptying into the small bowel loops. There is a transient time through the small bowel of 30 minutes. The small bowel caliber and fold pattern and thickness are normal. The terminal ileum appears normal. There are no filling defects seen. The small bowel dilatation seen on recent CT scan is not present on this exam. IMPRESSION: Unremarkable small bowel follow through. Dictated by: Dictated on workstation # [id number]
[2017-01-07 12:00] VITALS: BP 161/89
--- NOTE | 2017-01-07 15:35 | Progress Note (SOAP) ---
Subjective Date Seen by Provider: Jan 07, 2017 Time Seen by Provider: 15:02 Subjective/Events-last exam contrast study negative for mechanical small bowel obstruction and the patient has had several bowel movements. No abdominal pain and nausea Review of Systems General: No Chills, No Night Sweats, No Fatigue, No Malaise HEENT: No Head Aches, No Eye Pain, No Ear Pain, No Dysphasia, No Sinus Congestion, No Post Nasal Drip, No Sore Throat Pulmonary: No Dyspnea, No Cough, No Pleuritic Chest Pain Cardiovascular: No: Chest Pain, Edema, Lt Headedness, Orthopnea, Palpitations, Paroxysmal Noc. Dyspnea Gastrointestinal: No: Abdominal Pain, Constipation, Diarrhea, Hematochezia, Melena, Nausea, Vomiting Genitourinary: No Dysuria, No Frequency, No Incontinence, No Hematuria, No Retention Musculoskeletal: No: arm pain, back pain, foot pain, hand pain, leg pain, neck pain, other, shoulder pain Neurological: No: Change in speech, Confusion, Incoordination, Numbness, Other , Seizures, Weakness Objective Exam Vital Signs Date Time Temp Pulse Resp B/P (MAP) Pulse Ox O2 Delivery O2 Flow Rate FiO2 01/07/17 13:29 89 01/07/17 12:00 98.0 85 18 161/89 96 Room Air 01/07/17 09:00 Room Air 01/07/17 08:30 97.7 75 16 166/92 97 Room Air 01/07/17 07:59 80 01/07/17 04:45 98.6 69 18 146/83 93 Room Air 01/07/17 01:00 76 01/06/17 23:51 98.4 74 16 175/89 93 Room Air 01/06/17 21:45 147/84 01/06/17 21:00 Room Air 01/06/17 20:07 69 01/06/17 19:51 98.4 84 16 184/88 93 Room Air 01/06/17 18:14 167/86 01/06/17 16:05 98.5 83 18 177/84 96 Room Air I & O 01/07/17 07:00 Intake Total 1000 ml Output Total 2400 ml Balance -1400 ml Capillary Refill : Less Than 3 Seconds General Appearance: No Apparent Distress HEENT: TMs Normal Neck: Normal Inspection Respiratory: Lungs Clear Cardiovascular: Regular Rate, Rhythm Gastrointestinal: non tender, soft Extremity: Normal Capillary Refill Neurologic/Psychiatric: Oriented x3 Skin: Warm/Dry Assessment/Plan Assessment/Plan Assess & Plan/Chief Complaint Lady with radiologic evidence of distal small bowel obstruction. Possibly adhesive in nature. Will treat conservatively with nasogastric decompression. Subsequently, a contrast small bowel study will be obtained lady with partial small bowel obstruction. Currently resolved with conservative measures. Diet will be advanced slowly and possibly discharge him today. outpatient colonoscopy in a week. Final Diagnosis partial small bowel obstruction, resolved Clinical Quality Measures DVT/VTE Risk/Contraindication: Risk Factor Score Per Nursin RFS Level Per Nursing on Admit: 4+=Very High CHEN DE LA FUENTE MD Jan 07, 2017 3:35 pm
[2017-01-07 16:21] VITALS: BP 159/83
[2017-01-07 20:00] VITALS: BP 121/93
--- NOTE | 2017-01-07 23:26 | Progress Note (SOAP) ---
Subjective Date Seen by Provider: Jan 07, 2017 Time Seen by Provider: 08:35 Subjective/Events-last exam Fwup distal SBO, hypertension. NG tube in place. States passed flatus this morning. Had nausea overnight but denies this AM. Wants to go home. Objective Exam Vital Signs Date Time Temp Pulse Resp B/P (MAP) Pulse Ox O2 Delivery O2 Flow Rate FiO2 01/07/17 21:00 Room Air 01/07/17 20:00 98.6 76 20 121/93 93 Room Air 01/07/17 19:00 72 01/07/17 16:21 99.1 80 18 159/83 93 Room Air 01/07/17 13:29 89 01/07/17 12:00 98.0 85 18 161/89 96 Room Air 01/07/17 09:00 Room Air 01/07/17 08:30 97.7 75 16 166/92 97 Room Air 01/07/17 07:59 80 01/07/17 04:45 98.6 69 18 146/83 93 Room Air 01/07/17 01:00 76 01/06/17 23:51 98.4 74 16 175/89 93 Room Air I & O 01/07/17 07:00 Intake Total 1000 ml Output Total 2400 ml Balance -1400 ml Capillary Refill : Less Than 3 Seconds General Appearance: No Apparent Distress HEENT: Other (NG tube in place) Neck: Supple Respiratory: Lungs Clear Cardiovascular: Regular Rate, Rhythm Gastrointestinal: normal bowel sounds, soft, tenderness (LLQ, RLQ) Neurologic/Psychiatric: Alert, Oriented x3 Skin: Warm/Dry Assessment/Plan Assessment/Plan Assess & Plan/Chief Complaint 1. Distal SBO--SBFT today 2. Hypertension--improved with IV lopressor Clinical Quality Measures DVT/VTE Risk/Contraindication: Risk Factor Score Per Nursin RFS Level Per Nursing on Admit: 4+=Very High DRE MCDOWELL DO Jan 07, 2017 11:26 pm
[2017-01-08] VITALS: BP 175/79
[2017-01-08] MEDS: meTOprolol 5 MG/5 ML (LOPRESSOR) VIAL IV SCH ×3 (00:17→12:27)
[2017-01-08 05:00] VITALS: BP 134/72
[2017-01-08 05:41] LABS: BASOPHILS % (AUTO) 1 % (0-10); EOSINOPHILS # (AUTO) 0.3 10^3/uL (0.0-0.3); EOSINOPHILS % (AUTO) 6 % (0-10); LYMPHOCYTES % (AUTO) 36 % (12-44); MEAN CORPUSCULAR HEMOGLOBIN 31 PG (25-34); MEAN CORPUSCULAR HGB CONC 32 G/DL (32-36); MEAN CORPUSCULAR VOLUME 95 FL (80-99); MEAN PLATELET VOLUME 10.3 FL (7.4-10.4); MONOCYTES # (AUTO) 0.4 X 10^3 (0.0-1.0); MONOCYTES % (AUTO) 7 % (0-12); NEUTROPHILS # (AUTO) 2.8 X 10^3 (1.8-7.8); NEUTROPHILS % (AUTO) 51 % (42-75); PLATELET COUNT 231 10^3/uL (130-400); RED BLOOD COUNT 4.25 10^6/uL (4.35-5.85); RED CELL DISTRIBUTION WIDTH 13.6 % (10.0-14.5); WHITE BLOOD COUNT 5.5 10^3/uL (4.3-11.0)
[2017-01-08 06:04] LABS: ANION GAP 9 MMOL/L (5-14); BLOOD UREA NITROGEN 12 MG/DL (7-18); BUN/CREATININE RATIO 15 (0-20); CALCIUM 8.8 MG/DL (8.5-10.1); CARBON DIOXIDE 22 MMOL/L (21-32); CHLORIDE 110 MMOL/L (98-107); CREATININE SERUM 0.81 MG/DL (0.60-1.30); GFR ESTIMATED > 60; GLUCOSE 85 MG/DL (70-105); HEMOLYSIS 6 (0-29); ICTERUS 1.4 (0-1.9); LIPEMIA 2 (0-49); POTASSIUM 3.9 MMOL/L (3.6-5.0); SODIUM 141 MMOL/L (135-145)
[2017-01-08] MEDS: CATHETER FLUSH 10 ML SYR IV SCH ×2 (06:07→12:28)
[2017-01-08 08:00] VITALS: BP 134/82
[2017-01-08 11:45] VITALS: BP 140/71
[2017-01-08 12:24] VITALS: BP 157/76
[2017-01-08] MEDS ORDERED: LISI-556 PO (12:26)
[2017-01-08] MEDS ORDERED: DOCU-143 PO (12:26)
--- NOTE | 2017-01-08 12:29 | Discharge Inst-Simple/Standard ---
Discharge Inst-Standard Discharge Medications New, Converted or Re-Newed RX: Call to Patients Pharmacy Patient Instructions/Follow Up Plan of Care/Instructions/FU: Fwup [address] Khan in 1 week per his orders Activity as Tolerated: Yes Discharge Diet: Cardiac Diet DRE MCDOWELL DO Jan 08, 2017 12:29 pm
[2017-01-08 14:44] VITALS: BP 157/76
== END 2017-01-08 14:48 | disposition home or self-care (01) | DRG 389 ==
LOC: EDUNIT# 23:25 → ER 23:26 → 4TH 01-06 01:12
PROVIDERS: ADMIT Family Medicine; ATTEND Family Medicine
PROC: 0D9670Z Drainage of Stomach with Drainage Device, Via Natural or Artificial Opening (ICD-10-PCS; principal; 2017-01-06)
DX: K56.69 Other intestinal obstruction (principal); I10 Essential (primary) hypertension; I38 Endocarditis, valve unspecified; K21.9 Gastro-esophageal reflux disease without esophagitis; M19.91 Primary osteoarthritis, unspecified site; H35.30 Unspecified macular degeneration; Z90.89 Acquired absence of other organs
CPT/HCPCS: 36415; 74177; 74250; 80048; 80053; 81000; 82150; 83690; 83735; 85025; 96361; 96374; 96376

== ENCOUNTER 2017-01-16 08:00 | Outpatient (CLI) | payer MEDICARE, OTHER ==
[~2017-01-16] VITALS: Ht 152.4 cm; Wt 74.8 kg
[~2017-01-16 08:00] MED LIST changes: +CHOL100045 PO; +DOCU-143 PO; +LISI-556 PO; +VITA1CAP PO
== END 2017-01-16 09:00 ==
LOC: PREOP 08:00
PROVIDERS: ATTEND Surgery
DX: Z01.818 Encounter for other preprocedural examination (principal); R19.5 Other fecal abnormalities

== ENCOUNTER → 2017-02-09 | Outpatient (CLI) | payer MEDICARE, OTHER ==
--- NOTE | 2017-02-10 17:52 | Diagnostic Imaging Report ---
Bilateral screening mammogram 2D views with tomosynthesis. The current study was also evaluated with a Computer Aided Detection (CAD) system. INDICATION: Screening. No current complaints stated on the questionnaire. COMPARISON: 07/09/2016. FINDINGS: The breasts are composed of scattered fibroglandular densities. There are scattered benign-appearing calcifications. Circumscribed lobulated nodule in the upper aspect of the right breast is again seen with features suggestive of an intramammary lymph node without change from multiple prior exams. Allowing for technique and positional differences, no suspicious change is seen. IMPRESSION: No significant change. ACR BI-RADS Category 2: Benign findings. Result letter will be mailed to the patient. Note: At least 10% of breast cancer is not imaged by mammography. Dictated by: Dictated on workstation # [id number]
== END ==
LOC: RAD 10:17
PROVIDERS: ATTEND Family Medicine
DX: Z12.31 Encounter for screening mammogram for malignant neoplasm of breast (principal)
CPT/HCPCS: 77067

== ENCOUNTER 2017-07-10 18:44 | Inpatient (IN) | payer MEDICARE, OTHER ==
[~2017-07-10] VITALS: Ht 154.9 cm; Wt 75.3 kg
--- OUTSIDE RECORDS SUMMARY | 2017-07-10 18:51 | XMS REPORT | Continuity of Care Document ---
Author Author [facility] Organization [facility] Address Unknown Phone Unavailable Allergies Active Description Code Type Severity Reaction Onset Reported/Identified Relationship to Patient Clinical Status Yes sulfamethoxazole [id number] Drug Allergy Mild N/A 04/10/2013 Yes trimethoprim [id number] Drug Allergy Mild N/A 04/10/2013 Yes Sulfa (Sulfonamide Antibiotics) [id number] Drug Allergy Mild HIVES 2012 Yes morphine [id number] Drug Allergy Unknown hallucinations 01/06/2017 Medications There is no data. 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, FEM 03/28/2010 Ot 620.8 NONINFL DIS OVA/ADNX NEC 03/28/2010 Ot 621.0 POLYP OF CORPUS UTERI 03/28/2010 Ot 625.6 FEM STRESS INCONTINENCE 03/28/2010 Ot 733.90 BONE CARTILAGE DIS NOS 03/28/2010 Ot 995.91 SEPSIS 03/28/2010 Ot 998.2 ACCIDENTAL OP LACERATION 03/28/2010 Ot 998.59 OTH POSTOPER INFECTION 03/28/2010 Ot 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 04/12/2013 NERI RYAN MD Ot 560.9 INTESTINAL OBSTRUCT NOS 04/12/2013 NERI RYAN MD Ot 599.0 URIN TRACT INFECTION NOS 04/12/2013 NERI RYAN MD Ot V03.82 PROPHYLACTIC VACC AGAINST STREPTOCOCCUS 07/17/2015 NICOLETTE MCDOWELL DOLINE S Ot E78.5 07/17/2015 ADRIENNENDER , DRE S Ot M85.80 07/17/2015 ADRIENNENDER , DRE S Ot N63 07/17/2015 ADRIENNENDER DO, DRE S Ot R53.83 07/17/2015 ADRIENNENDER , DRE S Ot Z00.00 12/20/2015 ADRIENNENDER NICOLETTE PRIETOLINE S Ot M54.5 LOW BACK PAIN 12/20/2015 ADRIENNENDER DO, DRE S Ot M62.81 MUSCLE WEAKNESS (GENERALIZED) 12/26/2015 ORENDER DO, DRE S Ot N63 UNSPECIFIED LUMP IN BREAST 12/27/2015 ORENDER DO, DRE S Ot N63 UNSPECIFIED LUMP IN BREAST 01/17/2016 ORENDER DO, DRE S Ot N63 UNSPECIFIED LUMP IN BREAST 07/09/2016 DESTINI KIRT Patrice VARGHESE Ot Z12.31 ENCNTR SCREEN MAMMOGRAM FOR MALIGNANT NE 07/09/2016 Ot V76.12 OTH SCREEN MAMMO-MALIGN NEOPLASM OF [place] 07/09/2016 Ot V76.12 OTH SCREEN MAMMO-MALIGN NEOPLASM OF [place] 07/09/2016 NERI RYAN MD Ot V76.12 OTH SCREEN MAMMO-MALIGN NEOPLASM OF [place] 07/09/2016 NERI RYAN MD Ot 786.50 CHEST PAIN NOS 07/09/2016 NERI RYAN MD Ot 959.11 OTH INJURY OF CHEST WALL 07/09/2016 NERI RYAN MD Ot E000.8 OTHER EXTERNAL CAUSE STATUS 07/09/2016 NERI RYAN MD Ot E849.0 ACCIDENT IN HOME 07/09/2016 NERI RYAN MD Ot E888.9 FALL NOS 07/09/2016 Ot V76.12 OTH SCREEN MAMMO-MALIGN NEOPLASM OF [place] 07/09/2016 BRINDAER NICOLETTE PRIETOLINE S Ot E78.5 HYPERLIPIDEMIA, UNSPECIFIED 07/09/2016 JEREMIAS PRIETO DRE S Ot M85.80 OTH DISRD OF BONE DENSITY AND STRUCTURE, 07/09/2016 ADRIENNENDCAROL PRIETO DRE S Ot N63 UNSPECIFIED LUMP IN BREAST 07/09/2016 NICOLETTE MCDOWELL DOLINE S Ot R53.83 OTHER FATIGUE 07/09/2016 NICOLETTE MCDOWELL DOLINE S Ot Z00.00 ENCNTR FOR GENERAL ADULT MEDICAL EXAM W07/09/2016 NICOLETTE MCDOWELL DOLINE S Ot N63 UNSPECIFIED LUMP IN BREAST 07/09/2016 KIRT GEORGES DIRECTOR LONG TERM CARE Ot Z12.31 ENCNTR SCREEN MAMMOGRAM FOR MALIGNANT NE 07/09/2016 KIRT GEORGES DIRECTOR LONG TERM CARE Ot N63 UNSPECIFIED LUMP IN BREAST 07/09/2016 KIRT GEORGES DIRECTOR LONG TERM CARE Ot Z12.31 ENCNTR SCREEN MAMMOGRAM FOR MALIGNANT NE 07/10/2016 KIRT GEORGES DIRECTOR LONG TERM CARE Ot N63 UNSPECIFIED LUMP IN BREAST 07/10/2016 KIRT GEORGES DIRECTOR LONG TERM CARE Ot Z12.31 ENCNTR SCREEN MAMMOGRAM FOR MALIGNANT NE 07/10/2016 KIRT GEORGES DIRECTOR LONG TERM CARE Ot N63 UNSPECIFIED LUMP IN BREAST 07/16/2016 Ot V76.12 OTH SCREEN MAMMO-MALIGN NEOPLASM OF [place] 07/16/2016 Ot V76.12 OTH SCREEN MAMMO-MALIGN NEOPLASM OF [place] 07/16/2016 NERI RYAN MD Ot V76.12 OTH SCREEN MAMMO-MALIGN NEOPLASM OF [place] 07/16/2016 NERI RYAN MD Ot 786.50 CHEST PAIN NOS 07/16/2016 NERI RYAN MD Ot 959.11 OTH INJURY OF CHEST WALL 07/16/2016 NERI RYAN MD Ot E000.8 OTHER EXTERNAL CAUSE STATUS 07/16/2016 NERI RYAN MD Ot E849.0 ACCIDENT IN HOME 07/16/2016 NERI RYAN MD Ot E888.9 FALL NOS 07/16/2016 Ot V76.12 OTH SCREEN MAMMO-MALIGN NEOPLASM OF [place] 07/16/2016 NICOLETTE MCDOWELL DOLINE S Ot E78.5 HYPERLIPIDEMIA, UNSPECIFIED 07/16/2016 NICOLETTE MCDOWELL DOLINE S Ot M85.80 OTH DISRD OF BONE DENSITY AND STRUCTURE, 07/16/2016 NICOLETTE MCDOWELL DOLINE S Ot N63 UNSPECIFIED LUMP IN BREAST 07/16/2016 ORENDER DO, DRE S Ot R53.83 OTHER FATIGUE 07/16/2016 ADRIENNENDER DO, DRE S Ot Z00.00 ENCNTR FOR GENERAL ADULT MEDICAL EXAM W/ 07/16/2016 ADRIENNENDER DO, DRE S Ot N63 UNSPECIFIED LUMP IN BREAST 07/16/2016 KIRT GEORGES DIRECTOR LONG TERM CARE Ot N63 UNSPECIFIED LUMP IN BREAST 07/31/2016 KIRT GEORGES DIRECTOR LONG TERM CARE Ot N63 UNSPECIFIED LUMP IN BREAST 09/10/2016 ADRIENNENDER DO, DRE S Ot H34.11 CENTRAL RETINAL ARTERY OCCLUSION, RIGHT 09/10/2016 ORENDER DO, DRE S Ot H34.11 CENTRAL RETINAL ARTERY OCCLUSION, RIGHT 09/10/2016 Ot V76.12 OTH SCREEN MAMMO-MALIGN NEOPLASM OF [place]ACE 09/10/2016 Ot V76.12 OTH SCREEN MAMMO-MALIGN NEOPLASM OF [place] 09/10/2016 NERI RYAN MD Ot V76.12 OTH SCREEN MAMMO-MALIGN NEOPLASM OF [place] 09/10/2016 NERI RYAN MD Ot 786.50 CHEST PAIN NOS 09/10/2016 NERI RYAN MD Ot 959.11 OTH INJURY OF CHEST WALL 09/10/2016 NERI RYAN MD Ot E000.8 OTHER EXTERNAL CAUSE STATUS 09/10/2016 NERI RYAN MD Ot E849.0 ACCIDENT IN HOME 09/10/2016 NERI RYAN MD Ot E888.9 FALL NOS 09/10/2016 Ot V76.12 OTH SCREEN MAMMO-MALIGN NEOPLASM OF [place] 09/10/2016 ADRIENNENDER DO, DRE S Ot E78.5 HYPERLIPIDEMIA, UNSPECIFIED 09/10/2016 ADRIENNENDER DO, DRE S Ot M85.80 OTH DISRD OF BONE DENSITY AND STRUCTURE, 09/10/2016 ADRIENNENDER DO, DRE S Ot N63 UNSPECIFIED LUMP IN BREAST 09/10/2016 ADRIENNENDER DO, DRE S Ot R53.83 OTHER FATIGUE 09/10/2016 ADRIENNENDER DO, DRE S Ot Z00.00 ENCNTR FOR GENERAL ADULT MEDICAL EXAM W/ 09/10/2016 ADRIENNENDER DO, DRE S Ot N63 UNSPECIFIED LUMP IN BREAST 09/10/2016 KIRT GEORGES DIRECTOR LONG TERM CARE Ot N63 UNSPECIFIED LUMP IN BREAST 09/10/2016 ORENDER DO, DRE S Ot H34.11 CENTRAL RETINAL ARTERY OCCLUSION, RIGHT 09/11/2016 ORENDER DO, DRE S Ot H34.11 CENTRAL RETINAL ARTERY OCCLUSION, RIGHT 09/11/2016 ORENDER DO, DRE S Ot H34.11 CENTRAL RETINAL ARTERY OCCLUSION, RIGHT 09/16/2016 ORENDER DO, DRE S Ot H34.11 CENTRAL RETINAL ARTERY OCCLUSION, RIGHT 09/16/2016 ORENDER DO, DRE S Ot H34.11 CENTRAL RETINAL ARTERY OCCLUSION, RIGHT 09/17/2016 ORENDER DO, DRE S Ot H34.11 CENTRAL RETINAL ARTERY OCCLUSION, RIGHT 10/10/2016 ORENDER DO, DRE S Ot H34.11 CENTRAL RETINAL ARTERY OCCLUSION, RIGHT 01/06/2017 ORENDER DO, DRE S Ot H35.30 UNSPECIFIED MACULAR DEGENERATION 01/06/2017 ORENDER DO, DRE S Ot I38 ENDOCARDITIS, VALVE UNSPECIFIED 01/06/2017 ORENDER DO, DRE S Ot K21.9 GASTRO-ESOPHAGEAL REFLUX DISEASE WITHOUT 01/06/2017 ORENDER DO, DRE S Ot K56.69 OTHER INTESTINAL OBSTRUCTION 01/06/2017 ORENDER DO, DRE S Ot M19.91 PRIMARY OSTEOARTHRITIS, UNSPECIFIED SITE 01/06/2017 ORENDER DO, DRE S Ot Z90.89 ACQUIRED ABSENCE OF OTHER ORGANS 01/08/2017 ORENDER DO, DRE S Ot H35.30 UNSPECIFIED MACULAR DEGENERATION 01/08/2017 ORENDER DO, DRE S Ot I10 ESSENTIAL (PRIMARY) HYPERTENSION 01/08/2017 ORENDER DO, DRE S Ot I38 ENDOCARDITIS, VALVE UNSPECIFIED 01/08/2017 ORENDER DO, DRE S Ot K21.9 GASTRO-ESOPHAGEAL REFLUX DISEASE WITHOUT 01/08/2017 ORENDER DO, DRE S Ot K56.69 OTHER INTESTINAL OBSTRUCTION 01/08/2017 ORENDER DO, DRE S Ot M19.91 PRIMARY OSTEOARTHRITIS, UNSPECIFIED SITE 01/08/2017 ORENDER DO, DRE S Ot Z90.89 ACQUIRED ABSENCE OF OTHER ORGANS 01/13/2017 ORENDER DO, DRE S Ot H34.11 CENTRAL RETINAL ARTERY OCCLUSION, RIGHT 01/13/2017 ADRIENNENDER , DRE S Ot H34.11 CENTRAL RETINAL ARTERY OCCLUSION, RIGHT 01/13/2017 ADRINENENDER DO, DRE S Ot Z12.31 ENCNTR SCREEN MAMMOGRAM FOR MALIGNANT NE 02/09/2017 ADRIENNENDER DO, DRE S Ot Z12.31 ENCNTR SCREEN MAMMOGRAM FOR MALIGNANT NE 02/09/2017 ADRIENNENDER DO, DRE S Ot Z12.31 ENCNTR SCREEN MAMMOGRAM FOR MALIGNANT NE 02/09/2017 ADRIENNENDER DO, DRE S Ot Z12.31 ENCNTR SCREEN MAMMOGRAM FOR MALIGNANT NE 03/05/2017 ADRIENNENDCAROL PRIETO, DRE S Ot Z12.31 ENCNTR SCREEN MAMMOGRAM FOR MALIGNANT NE Procedures Code Description Performed By Performed On 59.79 URIN INCONTIN REPAIR [facility] 03/12/2010 65.61 OTH REMOVE BOTH OVARIES/ TUBES 03/12/2010 68.59 OTHER AND UNSPECIFIED VAGINAL HYSTERECTO 03/12/2010 70.50 CYSTOCEL/RECTOCEL REPAIR 03/12/2010 70.92 CUL-DE-SAC OPERATION [facility] 03/12/2010 38.93 VENOUS CATHETERIZATION [facility] 03/17/2010 45.62 PART SM BOWEL RESECT [facility] 03/17/2010 48.23 RIGID PROCTOSIGMOIDOSCOPY 03/17/2010 [id number] DRAINAGE OF ESOPHAGAST JUNCT WITH DRAIN 01/06/2017 [id number] DRAINAGE OF STOMACH WITH DRAINAGE DEVICE 01/06/2017 Results Test Result Range Complete blood count (CBC) with automated white blood cell (WBC) differential - 01/08/17 05:25 Blood leukocytes automated count (number/volume) 5.5 10*3/uL 4.3-11.0 Blood erythrocytes automated count (number/volume) 4.25 10*6/uL 4.35-5.85 Venous blood hemoglobin measurement (mass/volume) 13.0 g/dL 11.5-16.0 Blood hematocrit (volume fraction) 41 % 35-52 Automated erythrocyte mean corpuscular volume 95 [foz_us] 80-99 Automated erythrocyte mean corpuscular hemoglobin (mass per erythrocyte) 31 pg 25-34 Automated erythrocyte mean corpuscular hemoglobin concentration measurement ( mass/volume) 32 g/dL 32-36 Automated erythrocyte distribution width ratio 13.6 % 10.0-14.5 Automated blood platelet count (count/volume) 231 10*3/uL 130-400 Automated blood platelet mean volume measurement 10.3 [foz_us] 7.4-10.4 Automated blood neutrophils/100 leukocytes 51 % 42-75 Automated blood lymphocytes/100 leukocytes 36 % 12-44 Blood monocytes/100 leukocytes 7 % 0-12 Automated blood eosinophils/100 leukocytes 6 % 0-10 Automated blood basophils/100 leukocytes 1 % 0-10 Blood neutrophils automated count (number/volume) 2.8 10*3 1.8-7.8 Blood lymphocytes automated count (number/volume) 2.0 10*3 1.0-4.0 Blood monocytes automated count (number/volume) 0.4 10*3 0.0-1.0 Automated eosinophil count 0.3 10*3/uL 0.0-0.3 Automated blood basophil count (count/volume) 0.0 10*3/uL 0.0-0.1 Whole blood basic metabolic panel - 01/08/17 05:25 Serum or plasma sodium measurement (moles/volume) 141 mmol/L 135-145 Serum or plasma potassium measurement (moles/volume) 3.9 mmol/L 3.6-5.0 Serum or plasma chloride measurement (moles/volume) 110 mmol/L 98-107 Carbon dioxide 22 mmol/L 21-32 Serum or plasma anion gap determination (moles/volume) 9 mmol/L 5-14 Serum or plasma urea nitrogen measurement (mass/volume) 12 mg/dL 7-18 Serum or plasma creatinine measurement (mass/volume) 0.81 mg/dL 0.60-1.30 Serum or plasma urea nitrogen/creatinine mass ratio 15 0 -20 Serum or plasma creatinine measurement with calculation of estimated glomerular filtration rate > NRG Serum or plasma glucose measurement (mass/volume) 85 mg/dL 70-105 Serum or plasma calcium measurement (mass/volume) 8.8 mg/dL 8.5-10.1 Encounters ACCT No. Visit Date/Time Discharge Status Pt. Type Provider Facility Loc./Unit Complaint [id number] 02/09/2017 10:17:00 02/09/2017 23:59:59 CLS Outpatient DRE MCDOWELL DO [facility] RAD SCREENING [id number] 01/19/2017 10:15:00 01/19/2017 23:59:59 CLS Preadmit LEISA LORENZO, CHEN Kidd [facility] SDC COLONOSCOPY [id number] 01/16/2017 08:00:00 01/16/2017 09:00:00 DIS Outpatient CHEN DE LA FUENTE MD [facility] PREOP COLONOSCOPY [id number] 01/06/2017 01:12:00 01/08/2017 14:48:00 DIS Inpatient BEVERLEY MCDOWELL DOQUELINE S [facility] 4TH SMALL BOWEL OBSTRUCTION [id number] 09/16/2016 11:44:00 09/16/2016 23:59:59 CLS Outpatient BEVERLEY MCDOWELL DOQUELINE S [facility] CARD RT CENTRAL RETINAL ATERY OCCLUSION [id number] 09/10/2016 14:43:00 09/10/2016 23:59:59 CLS Outpatient JEREMIAS PRIETO DRE S [facility] RAD RT CENTRAL RETINAL ARTERY OCCLUSION [id number] 07/09/2016 11:07:00 07/09/2016 23:59:59 CLS Outpatient DESTINI KIRT Patrice VARGHESE [facility] RAD ROUTINE [id number] 12/26/2015 12:29:00 12/26/2015 23:59:59 CLS Outpatient BEVERLEY MCDOWELL DOQUELINE S [facility] RAD RT BREAST NODULE [id number] 12/20/2015 10:54:00 12/20/2015 11:55:00 DIS Outpatient JEREMIAS PRIETO DRE S [facility] REHAB GENERAL WEAKNESS; LOW BACK PAIN [id number] 06/19/2015 11:08:00 06/19/2015 23:59:59 CLS Outpatient JEREMIAS PRIETO DRE S [facility] RAD RT TENDER MASS [id number] 08/17/2013 12:19:00 08/17/2013 23:59:59 CLS Outpatient NERI RYAN MD [facility] RAD FALL, LT RIB PAIN [id number] 06/06/2013 10:40:00 06/06/2013 23:59:59 CLS Outpatient NERI RYAN MD [facility] RAD SCREENING [id number] 04/10/2013 21:23:00 04/12/2013 16:30:00 DIS Inpatient NERI RYAN MD [facility] 4TH PARTIAL SMALL BOWEL OBSTRUCTION, UTI [id number] 07/10/2017 18:46:00 ACT Emergency IVÁN JURADO MD [facility] ER STOMACH PAIN,THROWING UP [id number] 06/07/2014 10:04:00 Document Registration [id number] 06/04/2012 11:26:00 Document Registration [id number] 05/21/2011 13:22:00 Document Registration [id number] 03/12/2010 05:54:00 Document Registration
[2017-07-10] MEDS ORDERED: LACTATED RINGERS 1,000 ML IV ONE (19:48)
--- NOTE | 2017-07-10 19:58 | ED Abdominal Pain ---
General Chief Complaint: Abdominal/GI Problems Stated Complaint: STOMACH PAIN,THROWING UP Nursing Triage Note: Pt c/o N/V that began at 1630, 1 episode of vomiting. Sepsis Screen: No Definite Risk Source of Information: Patient, Family (Daughter) Exam Limitations: No Limitations History of Present Illness Time Seen By Provider: 19:48 Initial Comments Patient presents to ER by private conveyance with a chief complaint that for the past 3 hours she's been experiencing pain starts in her right upper quadrant and radiates across to her epigastric and left upper quadrant. She is also having nausea and has vomited one time without blood in the vomitus. She has had 2 bowel movements that were normal formed earlier today. She has a history of bowel obstructions in the last 4 years she's had 3. The started after she's had a bladder surgery and then subsequent exploratory laparotomy as well as a history of gallbladder surgery and hysterectomy. She says this is the same presentation as when she gets her bowel obstructions. She was told by her surgeon in the past that these were due to adhesions. In the past she's usually resolve in inpatient without surgery. Last oral intake was about 1800 hours. She did take some Pepto-Bismol 2 hours ago but it did not help her nausea. She' s having no fevers, chills, rash. Patient states she's had multiple colonoscopies but she's never been told she has diverticulosis. Allergies and Home Medications Allergies Coded Allergies: sulfamethoxazole (Verified Allergy, Mild, 04/10/13) trimethoprim (Verified Allergy, Mild, 04/10/13) Sulfa (Sulfonamide Antibiotics) (Verified Adverse Reaction, Mild, HIVES, ) morphine (Unverified Adverse Reaction, Unknown, hallucinations, 01/06/17) Home Medications Aspirin 81 Mg Tabec, 81 MG PO DAILY, (Reported) Cholecalciferol (Vitamin D3) 1,000 Unit Tablet, 1,000 UNIT PO DAILY, (Reported) Docusate Sodium 100 Mg Capsule, 200 MG PO BID for 30 Days Prescribed by: ANTOINE FRAUSTO on 01/08/17 1313 Lisinopril 5 Mg Tablet, 5 MG PO DAILY, #30 for BP Prescribed by: ANTOINE FRAUSTO on 01/08/17 1313 Mu-Vits-Min Th/Lycopene/Lutein 1 Each Tablet, 1 EACH PO DAILY, (Reported) Vitamin B Complex 1 Each Capsule, 1 EACH PO DAILY, (Reported) Review of Systems Constitutional: No chills, No fever, No malaise EENTM: No Blurred Vision, No Double Vision, No Eye Pain Respiratory: Denies Cough, Denies Shortness of Air Cardiovascular: Denies Chest Pain, Denies Lightheadedness Gastrointestinal: See HPI, Abdomen Distended, Abdominal Pain, Denies Constipated, Denies Diarrhea, Nausea, Denies Poor Fluid Intake, Vomiting Genitourinary: Denies Burning, Denies Discharge, Denies Drainage Musculoskeletal: No back pain, No joint pain Skin: No pruritus, No rash Psychiatric/Neurological: Denies Headache, Denies Numbness, Denies Paresthesia Past Ulkyiyq-Udavzt-Vcmnoa Hx Patient Social History Alcohol Use: Denies Use Recreational Drug Use: No Smoking Status: Never a Smoker 2nd Hand Smoke Exposure: No Recent Foreign Travel: No Contact w/Someone Who Travel: No Recent Infectious Disease Expo: No Recent Hopitalizations: No Physical Abuse: No Sexual Abuse: No Mistreated: No Fear: No Immunizations Up To Date Tetanus Booster (TDap): Unknown PED Vaccines UTD: No Date of Pneumonia Vaccine: May 08, 2015 Seasonal Allergies Seasonal Allergies: No Surgeries History of Surgeries: Yes (HERNIAS, VEINS TAKEN OUT OF RT LEG) Surgeries: Gallbladder, Hysterectomy Respiratory History of Respiratory Disorde: No Cardiovascular History 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 ) Cardiac Disorders: Hypertension Neurological History of Neurological Disord: No Reproductive System Hx Reproductive Disorders: No Sexually Transmitted Disease: No SENIOR INSPECTOR History: Hysterectomy, Menopausal Genitourinary History of Genitourinary Disor: Yes Genitourinary Disorders: UTI-Chronic Gastrointestinal History of Gastrointestinal Di: Yes Gastrointestinal Disorders: Gastroesophageal Reflux, Obstructive Bowel Musculoskeletal History of Musculoskeletal Dis: Yes Musculoskeletal Disorders: Arthritis Endocrine History of Endocrine Disorders: No HEENT History of HEENT Disorders: Yes HEENT Disorders: Macular Degeneration Loss of Vision: Bilateral Hearing Impairment: Denies Cancer History of Cancer: No Psychosocial History of Psychiatric Problem: No Suicide Risk Score: 0 Integumentary History of Skin or Integumenta: No Blood Transfusions History of Blood Disorders: No Adverse Reaction to a Blood Tr: No Family Medical History Significant Family History: No Pertinent Family Hx Family Medial History: Colon cancer G8 SISTER, G8 SISTER, G8 BROTHER, G8 BROTHER, G8 BROTHER, FH: breast cancer G8 SISTER FH: lung cancer G8 BROTHER, FH: myocardial infarction 19 FATHER, , Age:74 FH: thyroid cancer DAUGHTER Physical Exam Vital Signs VS - Last 72 Hours, by Label 07/10/17 19:20 Temp 98.0 Pulse 70 Resp 18 B/P (MAP) 171/85 (113) Pulse Ox 98 O2 Delivery Room Air Capillary Refill : Less Than 3 Seconds General Appearance: WD/WN, mild distress HEENT: PERRL/EOMI, pharynx normal Neck: non-tender, supple, normal inspection Respiratory: chest non-tender, lungs clear, normal breath sounds, no respiratory distress Cardiovascular: normal peripheral pulses, regular rate, rhythm Peripheral Pulses: 2+ Radial Pulses (R), 2+ Radial Pulses (L) Gastrointestinal: normal bowel sounds (on the left side but right side especially upper quadrant has hyperactive L sounds.), soft, tenderness (mild and epigastric and right upper quadrant but very tender to palpation in the left lower quadrant.) Extremities: normal range of motion, non-tender, normal capillary refill Neurologic/Psychiatric: alert, normal mood/affect, oriented x 3 Skin: normal color, warm/dry Progress/Results/Core Measures Results/Orders Lab Results Laboratory Tests Test 07/10/17 20:08 07/10/17 21:39 Range/Units White Blood Count 10.5 4.3-11.0 10^3/uL Red Blood Count 4.66 4.35-5.85 10^6/uL Hemoglobin 14.4 11.5-16.0 G/DL Hematocrit 44 35-52 % Mean Corpuscular Volume 94 80-99 FL Mean Corpuscular Hemoglobin 31 25-34 PG Mean Corpuscular Hemoglobin Concent 33 32-36 G/DL Red Cell Distribution Width 13.5 10.0-14.5 % Platelet Count 252 130-400 10^3/uL Mean Platelet Volume 10.8 H 7.4-10.4 FL Neutrophils (%) (Auto) 81 H 42-75 % Lymphocytes (%) (Auto) 13 12-44 % Monocytes (%) (Auto) 5 0-12 % Eosinophils (%) (Auto) 1 0-10 % Basophils (%) (Auto) 0 0-10 % Neutrophils # (Auto) 8.5 H 1.8-7.8 X 10^3 Lymphocytes # (Auto) 1.4 1.0-4.0 X 10^3 Monocytes # (Auto) 0.5 0.0-1.0 X 10^3 Eosinophils # (Auto) 0.1 0.0-0.3 10^3/uL Basophils # (Auto) 0.0 0.0-0.1 10^3/uL Sodium Level 141 135-145 MMOL/L Potassium Level 4.1 3.6-5.0 MMOL/L Chloride Level 107 98-107 MMOL/L Carbon Dioxide Level 23 21-32 MMOL/L Anion Gap 11 5-14 MMOL/L Blood Urea Nitrogen 18 7-18 MG/DL Creatinine 1.00 0.60-1.30 MG/DL Estimat Glomerular Filtration Rate 53 BUN/Creatinine Ratio 18 Glucose Level 118 H 70-105 MG/DL Calcium Level 9.6 8.5-10.1 MG/DL Magnesium Level 2.1 1.8-2.4 MG/DL Total Bilirubin 0.8 0.1-1.0 MG/DL Aspartate Amino Transf (AST/SGOT) 19 5-34 U/L Alanine Aminotransferase (ALT/SGPT) 15 0-55 U/L Alkaline Phosphatase 54 40-136 U/L Total Protein 7.3 6.4-8.2 GM/DL Albumin 4.0 3.2-4.5 GM/DL Urine Color YELLOW Urine Clarity CLEAR Urine pH 6 5-9 Urine Specific [place] 1.020 1.016-1.022 Urine Protein NEGATIVE NEGATIVE Urine Glucose (UA) NEGATIVE NEGATIVE Urine Ketones NEGATIVE NEGATIVE Urine Nitrite NEGATIVE NEGATIVE Urine Bilirubin NEGATIVE NEGATIVE Urine Urobilinogen NORMAL NORMAL MG/DL Urine Leukocyte Esterase 3+ H NEGATIVE Urine RBC (Auto) NEGATIVE NEGATIVE Urine RBC NONE /HPF Urine WBC 25-50 H /HPF Urine Squamous Epithelial Cells 2-5 /HPF Urine Crystals NONE /LPF Urine Bacteria TRACE /HPF Urine Casts NONE /LPF Urine Mucus NEGATIVE /LPF Urine Culture Indicated YES My Orders Orders - IVÁN JURADO Ct Abdomen/Pelvis W (07/10/17 19:48) Saline Lock/Iv-Start (07/10/17 19:48) Cbc With Automated Diff (07/10/17 19:48) Comprehensive Metabolic Panel (07/10/17 19:48) Magnesium (07/10/17 19:48) Ua Culture If Indicated (07/10/17 19:48) Saline Lock/Iv-Start (07/10/17 19:48) Lactated Ringers (Lr 1000 Ml Iv Solution (07/10/17 19:48) Diatrizoate Meglum/Sodium 37% (Gastrogra (07/10/17 20:00) Fentanyl Injection (Sublimaze Injection (07/10/17 20:00) Ondansetron Injection (Zofran Injectio (07/10/17 20:00) Diatrizoate Meglum/Sodium 37% (Gastrogra (07/10/17 20:30) Fentanyl Injection (Sublimaze Injection (07/10/17 20:45) Ondansetron Injection (Zofran Injectio (07/10/17 20:45) Iohexol Injection (Omnipaque 350 Mg/Ml 1 (07/10/17 21:15) Ns (Ivpb) (Sodium Chloride 0.9% Ivpb Bag (07/10/17 21:15) Pharmacy Communication (Pharmacy Communi (07/10/17 21:09) Promethazine Injection (Phenergan Injec (07/10/17 21:45) Fentanyl Injection (Sublimaze Injection (07/10/17 21:45) Ciprofloxacin Iv 400mg/200ml (Cipro Iv S (07/10/17 22:00) Ng Tube Insert & Assessment (07/10/17 21:58) Abdomen/Kub 1view (07/10/17 21:58) Medications Given in ED Current Medications Medications Dose Ordered Sig/Semaj Route Start Time Stop Time Status Last Admin Dose Admin Diatrizoate Meglum/ Diatrizoate Sod 120 ml ONCE ONCE PO 07/10/17 20:00 07/10/17 20:01 DC 07/10/17 20:17 20 ML Fentanyl Citrate 50 mcg ONCE ONCE IVP 07/10/17 20:00 07/10/17 20:01 DC 07/10/17 20:05 50 MCG Fentanyl Citrate 50 mcg ONCE ONCE IVP 07/10/17 20:45 07/10/17 20:46 DC 07/10/17 20:38 50 MCG Fentanyl Citrate 50 mcg ONCE ONCE IVP 07/10/17 21:45 07/10/17 21:46 DC 07/10/17 21:44 50 MCG Lactated Ringer's 1,000 ml @ 0 mls/hr Q0M ONCE IV 07/10/17 19:48 07/10/17 19:52 DC 07/10/17 20:04 0 MLS/HR Ondansetron HCl 4 mg ONCE ONCE IVP 07/10/17 20:00 07/10/17 20:01 DC 07/10/17 20:04 4 MG Ondansetron HCl 4 mg ONCE ONCE IVP 07/10/17 20:45 07/10/17 20:46 DC 07/10/17 20:37 4 MG Promethazine HCl 25 mg ONCE ONCE IM 07/10/17 21:45 07/10/17 21:46 DC 07/10/17 21:40 25 MG Vital Signs/I&O Vital Sign - Last 12Hours 07/10/17 19:20 Temp 98.0 Pulse 70 Resp 18 B/P (MAP) 171/85 (113) Pulse Ox 98 O2 Delivery Room Air Blood Pressure Mean: 113 Progress Note #1: Time: 19:56 Progress Note Differential includes a small bowel obstruction versus diverticulitis versus colitis. Patient does not have a significant vascular disease history so mesenteric is less likely. She's not having any mesenteric signs on exam. We'll do a CT with oral and IV contrast as well as some pain and nausea medicines, basic blood work and give her a liter of LR. Progress Note #2: Time: 21:[address] shows fecal a small bowel obstruction. Patient has not improved or nausea or pain is still feels distended. She has not vomited but I have not talked her into putting an NG tube in. We'll consult surgery. We'll initiate ciprofloxacin IV. Diagnostic Imaging Diagonstic Imaging: CT Plain Films/CT/US/NM/MRI: abdomen, pelvis (with IV and oral contrast) Comments NAME: ANITA WELCH Charisse MED REC#: [id number] PT STATUS: REG ER : 1935 PHYSICIAN: IVÁN JURADO MD ADMIT DATE: 07/10/17/ER Draft Date of Exam:07/10/17 CT ABDOMEN/PELVIS W PROCEDURE: CT abdomen and pelvis with contrast. TECHNIQUE: Multiple contiguous axial images were obtained through the abdomen and pelvis after administration of intravenous contrast. INDICATION: Nausea, vomiting, abdominal pain. COMPARISON: Study compared with 01/07/2008. FINDINGS: The distal and terminal ileum are decompressed. Small bowel proximal to that level within the lower pelvis shows small bowel feces, abnormal dilatation and some edema and infiltration of the adjacent subtending mesenteric fat with small amount of fluid along the mesenteric sleeves. There is mild aortic atherosclerosis without hemodynamically significant stenosis. The celiac, superior mesenteric and inferior mesenteric arteries as well as their primary branches appear patent. No pneumatosis. No free air. There is noninflamed diverticulosis at the sigmoid. There is no abscess or loculated fluid collection. Hepatic lobe cyst on the left is benign. Gallbladder is absent. The pancreas, spleen and adrenals are negative. IMPRESSION: Findings of distal small bowel obstruction with regional inflammatory changes. This may be on an infectious or inflammatory basis. No perforation, pneumatosis or free gas. There is no abscess. Mild aortic atherosclerosis without arterial obstruction visualized. Noninflamed diverticulosis. Benign liver cyst. Trace free fluid. Dictated on workstation # [id number] Dict: 07/10/172125 Trans: 07/10/172139 [facility] [id number] Interpreted by: ANNIKA RUSSO Electronically signed by: Reviewed: Reviewed by Ga Diagonstic Imaging: Xray Plain Films/CT/US/NM/MRI: abdomen (KUB) Comments G-tube as above the level of the cardia of the stomach. Reviewed: Reviewed by Ga Diagonstic Imaging: Xray Plain Films/CT/US/NM/MRI: abdomen (kub) Comments NG tube advanced about 4-6 cm into the stomach. Reviewed: Reviewed by Ga Departure Communication (Admissions) Time/Spoke to Admitting Phy: 20:[address] Hadley of the case lab imaging and findings and he is okay to see the patient. Time/Spoke to Consulting Phy: 22:00 Communication/Consulting Dr. Long came sit up so the patient after his last surgical case and he is okay with Zosyn, NG tube and will follow the patient. Impression Impression: Primary Impression: Small bowel obstruction Additional Impression: Urinary tract infection Qualified Codes: N30.00 - Acute cystitis without hematuria Disposition: ADMITTED INPATIENT Condition: Improved Admissions Decision to Admit Reason: Admit from ER (General) Decision to Admit/Date: Jul 10, 2017 Time/Decision to Admit Time: 22:24 Departure-Patient Inst. Referrals: DRE MCDOWELL DO (PCP/Family) Primary Care Physician Copy Copies To 1: MIRIAN LONG DO; DER MCDOWELL TITUS J Jul 10, 2017 19:57
[2017-07-10] MEDS ORDERED: ONDANSETRON 4 MG/2 ML (SDV) Z0FRAN IVP ONE ×3 (20:00→23:15)
[2017-07-10] MEDS ORDERED: fentaNYL INJECTION 100 MCG/2 ML AMP IVP ONE ×3 (20:00→21:45)
[2017-07-10] MEDS ORDERED: DIATRIZOATE MEGLUM/SODIUM 37% 120 ML (GASTROGRAFIN) PO ONE ×2 (20:00→20:30)
[2017-07-10 20:16] LABS: BASOPHILS % (AUTO) 0 % (0-10); EOSINOPHILS # (AUTO) 0.1 10^3/uL (0.0-0.3); EOSINOPHILS % (AUTO) 1 % (0-10); LYMPHOCYTES # (AUTO) 1.4 X 10^3 (1.0-4.0); LYMPHOCYTES % (AUTO) 13 % (12-44); MEAN CORPUSCULAR HEMOGLOBIN 31 PG (25-34); MEAN CORPUSCULAR HGB CONC 33 G/DL (32-36); MEAN CORPUSCULAR VOLUME 94 FL (80-99); MEAN PLATELET VOLUME 10.8 FL (7.4-10.4); MONOCYTES # (AUTO) 0.5 X 10^3 (0.0-1.0); MONOCYTES % (AUTO) 5 % (0-12); NEUTROPHILS # (AUTO) 8.5 X 10^3 (1.8-7.8); NEUTROPHILS % (AUTO) 81 % (42-75); PLATELET COUNT 252 10^3/uL (130-400); RED BLOOD COUNT 4.66 10^6/uL (4.35-5.85); RED CELL DISTRIBUTION WIDTH 13.5 % (10.0-14.5); WHITE BLOOD COUNT 10.5 10^3/uL (4.3-11.0)
[2017-07-10 20:36] LABS: BILIRUBIN,TOTAL 0.8 MG/DL (0.1-1.0); CALCIUM 9.6 MG/DL (8.5-10.1); MAGNESIUM 2.1 MG/DL (1.8-2.4); POTASSIUM 4.1 MMOL/L (3.6-5.0); TOTAL PROTEIN 7.3 GM/DL (6.4-8.2)
[2017-07-10] MEDS ORDERED: NS 100 ML (IVPB) BAG IV ONE (21:15)
[2017-07-10] MEDS ORDERED: IOHEXOL 350 MG/ML 100 ML (OMNIPAQUE 350) VIAL IV ONE (21:15)
--- NOTE | 2017-07-10 21:40 | Diagnostic Imaging Report ---
PROCEDURE: CT abdomen and pelvis with contrast. TECHNIQUE: Multiple contiguous axial images were obtained through the abdomen and pelvis after administration of intravenous contrast. INDICATION: Nausea, vomiting, abdominal pain. COMPARISON: Study compared with 01/07/2008. FINDINGS: The distal and terminal ileum are decompressed. Small bowel proximal to that level within the lower pelvis shows small bowel feces, abnormal dilatation and some edema and infiltration of the adjacent subtending mesenteric fat with small amount of fluid along the mesenteric sleeves. There is mild aortic atherosclerosis without hemodynamically significant stenosis. The celiac, superior mesenteric and inferior mesenteric arteries as well as their primary branches appear patent. No pneumatosis. No free air. There is noninflamed diverticulosis at the sigmoid. There is no abscess or loculated fluid collection. Hepatic lobe cyst on the left is benign. Gallbladder is absent. The pancreas, spleen and adrenals are negative. IMPRESSION: Findings of distal small bowel obstruction with regional inflammatory changes. This may be on an infectious or inflammatory basis. No perforation, pneumatosis or free gas. There is no abscess. Mild aortic atherosclerosis without arterial obstruction visualized. Noninflamed diverticulosis. Benign liver cyst. Trace free fluid. Dictated by: Dictated on workstation # [id number]
[2017-07-10] MEDS ORDERED: PROMETHAZINE INJ 25 MG/ML (PHENERGAN) AMP IM ONE (21:45)
[2017-07-10 21:46] LABS: BILIRUBIN,URINE NEGATIVE (NEGATIVE); KETONES,URINE NEGATIVE (NEGATIVE); LEUKOCYTE ESTERASE ,URINE 3+ (NEGATIVE); NITRITE,URINE NEGATIVE (NEGATIVE); PH,URINE 6 (5-9); PROTEIN,URINE NEGATIVE (NEGATIVE); UROBILINOGEN,URINE NORMAL (NORMAL)
[2017-07-10] MEDS ORDERED: CIPROFLOXACIN IV 400MG/200ML 200 ML IV ONE (22:00)
[2017-07-10 22:03] LABS: WBC,URINE 25-50 /HPF
[2017-07-10] MEDS ORDERED: PIPERACILLIN SODIUM/TAZOBACTAM 4.5 GM in NS (IVPB) 100 ML IV ONE (22:30)
--- OUTSIDE RECORDS SUMMARY | 2017-07-10 22:43 | XMS REPORT | Continuity of Care Document ---
Author Author [facility] Organization [facility] Address Unknown Phone Unavailable Allergies Active Description Code Type Severity Reaction Onset Reported/Identified Relationship to Patient Clinical Status Yes sulfamethoxazole [id number] Drug Allergy Mild N/A 04/10/2013 Yes trimethoprim [id number] Drug Allergy Mild N/A 04/10/2013 Yes Sulfa (Sulfonamide Antibiotics) [id number] Drug Allergy Mild HIVES 2012 Yes morphine [id number] Drug Allergy Unknown hallucinations 01/06/2017 Medications There [...] UNSPECIFIED LUMP IN BREAST 07/09/2016 KIRT GEORGES CLINICAL DATA ASSOCIATE Ot Z12.31 ENCNTR SCREEN MAMMOGRAM FOR MALIGNANT NE 07/09/2016 KIRT GEORGES [employer]INICAL DATA ASSOCIATE Ot N63 UNSPECIFIED LUMP IN BREAST 07/09/2016 KIRT GEORGES [employer]INICAL DATA ASSOCIATE Ot Z12.31 ENCNTR SCREEN MAMMOGRAM FOR MALIGNANT NE 07/10/2016 KIRT GEORGES CLINICAL DATA ASSOCIATE Ot N63 UNSPECIFIED LUMP IN BREAST 07/10/2016 KIRT GEORGES CLINICAL DATA ASSOCIATE Ot Z12.31 ENCNTR SCREEN MAMMOGRAM FOR MALIGNANT NE 07/10/2016 KIRT GEORGES CLINICAL DATA ASSOCIATE Ot N63 UNSPECIFIED LUMP IN BREAST 07/16/2016 [...] UNSPECIFIED LUMP IN BREAST 07/16/2016 KIRT GEORGES CLINICAL DATA ASSOCIATE Ot N63 UNSPECIFIED LUMP IN BREAST 07/31/2016 KIRT GEORGES CLINICAL DATA ASSOCIATE Ot N63 UNSPECIFIED LUMP IN BREAST 09/10/2016 [...] OTH INJURY OF CHEST WALL 09/10/2016 NERI RAYN MD Ot E000.8 OTHER EXTERNAL CAUSE STATUS [...] UNSPECIFIED LUMP IN BREAST 09/10/2016 KIRT GEORGES [employer]INICAL DATA ASSOCIATE Ot N63 UNSPECIFIED LUMP IN BREAST 09/10/2016 [...] CENTRAL RETINAL ARTERY OCCLUSION, RIGHT 01/13/2017 ADRIENNENDER DO, DRE S Ot Z12.31 ENCNTR [...] By Performed On 59.79 URIN INCONTIN REPAIR BANNER 03/12/2010 65.61 OTH REMOVE BOTH OVARIES/ TUBES 03/12/2010 68.59 OTHER AND UNSPECIFIED VAGINAL HYSTERECTO 03/12/2010 70.50 CYSTOCEL/RECTOCEL REPAIR 03/12/2010 70.92 CUL-DE-SAC OPERATION BANNER 03/12/2010 38.93 VENOUS CATHETERIZATION BANNER 03/17/2010 45.62 PART SM BOWEL RESECT BANNER 03/17/2010 48.23 RIGID PROCTOSIGMOIDOSCOPY 03/17/2010 [id number] DRAINAGE OF ESOPHAGAST JUNCT WITH DRAIN 01/06/2017 [id number] DRAINAGE OF STOMACH WITH DRAINAGE DEVICE 01/06/2017 [...] plasma calcium measurement (mass/volume) 8.8 mg/dL 8.5-10.1 Complete blood count (CBC) with automated white blood cell (WBC) differential - 07/10/17 20:08 Blood leukocytes automated count (number/volume) 10.5 10*3/uL 4.3-11.0 Blood erythrocytes automated count (number/volume) 4.66 10*6/uL 4.35-5.85 Venous blood hemoglobin measurement (mass/volume) 14.4 g/dL 11.5-16.0 Blood hematocrit (volume fraction) 44 % 35-52 Automated erythrocyte mean corpuscular volume 94 [foz_us] 80-99 Automated erythrocyte mean corpuscular hemoglobin (mass per erythrocyte) 31 pg 25-34 Automated erythrocyte mean corpuscular hemoglobin concentration measurement ( mass/volume) 33 g/dL 32-36 Automated erythrocyte distribution width ratio 13.5 % 10.0-14.5 Automated blood platelet count (count/volume) 252 10*3/uL 130-400 Automated blood platelet mean volume measurement 10.8 [foz_us] 7.4-10.4 Automated blood neutrophils/100 leukocytes 81 % 42-75 Automated blood lymphocytes/100 leukocytes 13 % 12-44 Blood monocytes/100 leukocytes 5 % 0-12 Automated blood eosinophils/100 leukocytes 1 % 0-10 Automated blood basophils/100 leukocytes 0 % 0-10 Blood neutrophils automated count (number/volume) 8.5 10*3 1.8-7.8 Blood lymphocytes automated count (number/volume) 1.4 10*3 1.0-4.0 Blood monocytes automated count (number/volume) 0.5 10*3 0.0-1.0 Automated eosinophil count 0.1 10*3/uL 0.0-0.3 Automated blood basophil count (count/volume) 0.0 10*3/uL 0.0-0.1 Comprehensive metabolic panel - 07/10/17 20:08 Serum or plasma sodium measurement (moles/volume) 141 mmol/L 135-145 Serum or plasma potassium measurement (moles/volume) 4.1 mmol/L 3.6-5.0 Serum or plasma chloride measurement (moles/volume) 107 mmol/L 98-107 Carbon dioxide 23 mmol/L 21-32 Serum or plasma anion gap determination (moles/volume) 11 mmol/L 5-14 Serum or plasma urea nitrogen measurement (mass/volume) 18 mg/dL 7-18 Serum or plasma creatinine measurement (mass/volume) 1.00 mg/dL 0.60-1.30 Serum or plasma urea nitrogen/creatinine mass ratio 18 NRG Serum or plasma creatinine measurement with calculation of estimated glomerular filtration rate 53 NRG Serum or plasma glucose measurement (mass/volume) 118 mg/dL 70-105 Serum or plasma calcium measurement (mass/volume) 9.6 mg/dL 8.5-10.1 Serum or plasma total bilirubin measurement (mass/volume) 0.8 mg/dL 0.1-1.0 Serum or plasma alkaline phosphatase measurement (enzymatic activity/volume) 54 U/L 40-136 Serum or plasma aspartate aminotransferase measurement (enzymatic activity/ volume) 19 U/L 5-34 Serum or plasma alanine aminotransferase measurement (enzymatic activity/volume ) 15 U/L 0-55 Serum or plasma protein measurement (mass/volume) 7.3 g/dL 6.4-8.2 Serum or plasma albumin measurement (mass/volume) 4.0 g/dL 3.2-4.5 Magnesium - 07/10/17 20:08 Magnesium 2.1 mg/dL 1.8-2.4 Complete urinalysis with reflex to culture - 07/10/17 21:39 Urine color determination YELLOW NRG Urine clarity determination CLEAR NRG Urine pH measurement by test strip 6 5-9 Specific gravity of urine by test strip 1.020 1.016- 1.022 Urine protein assay by test strip, semi-quantitative NEGATIVE NEGATIVE Urine glucose detection by automated test strip NEGATIVE NEGATIVE Erythrocytes detection in urine sediment by light microscopy NEGATIVE NEGATIVE Urine ketones detection by automated test strip NEGATIVE NEGATIVE Urine nitrite detection by test strip NEGATIVE NEGATIVE Urine total bilirubin detection by test strip NEGATIVE NEGATIVE Urine urobilinogen measurement by automated test strip (mass/volume) NORMAL NORMAL Urine leukocyte esterase detection by dipstick 3+ NEGATIVE Automated urine sediment erythrocyte count by microscopy (number/high power field) NONE NRG Automated urine sediment leukocyte count by microscopy (number/high power field ) [HPF] NRG Bacteria detection in urine sediment by light microscopy TRACE NRG Squamous epithelial cells detection in urine sediment by light microscopy 2-5 NRG Crystals detection in urine sediment by light microscopy NONE NRG Casts detection in urine sediment by light microscopy NONE NRG Mucus detection in urine sediment by light microscopy NEGATIVE NRG Complete urinalysis with reflex to culture YES NRG Encounters ACCT No. Visit Date/Time Discharge Status Pt. Type Provider Facility Loc./Unit Complaint [id number] 02/09/2017 10:17:00 02/09/2017 23:59:59 CLS Outpatient DRE MCDOWELL DO [facility] RAD SCREENING [id number] 01/19/2017 10:15:00 01/19/2017 23:59:59 CLS Preadmit CHEN DE LA FUENTE MD [facility] SDC COLONOSCOPY [id number] 01/16/2017 08:00:00 01/16/2017 09:00:00 DIS Outpatient CHEN DE LA FUENTE MD [facility] PREOP COLONOSCOPY [id number] 01/06/2017 01:12:00 01/08/2017 14:48:00 DIS Inpatient DRE MCDOWELL DO S [facility] 4TH SMALL BOWEL OBSTRUCTION [id number] 09/16/2016 11:44:00 09/16/2016 23:59:59 CLS Outpatient NICOLETTE MCDOWELL DOLINE S [facility] CARD RT CENTRAL RETINAL ATERY OCCLUSION [id number] 09/10/2016 14:43:00 09/10/2016 23:59:59 CLS Outpatient NICOLETTE MCDOWELL DOLINE S [facility] RAD RT CENTRAL RETINAL ARTERY OCCLUSION [id number] 07/09/2016 11:07:00 07/09/2016 23:59:59 CLS Outpatient KIRT GEORGES Patrice VARGHESE [facility] RAD ROUTINE [id number] 12/26/2015 12:29:00 12/26/2015 23:59:59 CLS Outpatient BEVERLEY MCDOWELL DOQUELINE S [facility] RAD RT BREAST NODULE [id number] 12/20/2015 10:54:00 12/20/2015 11:55:00 DIS Outpatient BEVERLEY MCDOWELL DOQUELINE S [facility] REHAB GENERAL WEAKNESS; LOW BACK PAIN [id number] 06/19/2015 11:08:00 06/19/2015 23:59:59 CLS Outpatient NICOLETTE MCDOWELL DOLINE S [facility] RAD RT TENDER MASS [id number] 08/17/2013 12:19:00 08/17/2013 23:59:59 CLS Outpatient NERI RYAN MD [facility] RAD FALL, LT RIB PAIN [id number] 06/06/2013 10:40:00 06/06/2013 23:59:59 CLS Outpatient NERI RYAN MD [facility] RAD SCREENING [id number] 04/10/2013 21:23:00 04/12/2013 16:30:00 DIS Inpatient NERI RYAN MD [facility] 4TH PARTIAL SMALL BOWEL OBSTRUCTION, UTI [id number] 07/10/2017 22:00:00 ACT Inpatient NERI RYAN MD [facility] 4TH SMALL BOWEL OBSTRUCTION, UTI [id number] 06/07/2014 10:04:00 Document Registration [id number] 06/04/2012 11:26:00 Document Registration [id number] 05/21/2011 13:22:00 Document Registration [id number] 03/12/2010 05:54:00 Document Registration
--- NOTE | 2017-07-10 22:47 | Consultation ---
History of Present Illness History of Present Illness Patient Consulted On(len/time) 07/10/17 22:38 Time Seen by Provider: 09:51 History of Present Illness Surgery asked to consult regarding partial bowel obstruction. HPI: Patient presents to ER by private conveyance with a chief complaint that for the past 3 hours she's been experiencing pain starts in her right upper quadrant and radiates across to her epigastric and left upper quadrant. She is also having nausea and has vomited one time without blood in the vomitus. She has had 2 bowel movements that were normal formed earlier today. She has a history of bowel obstructions in the last 4 years she's had 3. The started after she's had a bladder surgery and then subsequent exploratory laparotomy as well as a history of gallbladder surgery and hysterectomy. She says this is the same presentation as when she gets her bowel obstructions. She was told by her surgeon in the past that these were due to adhesions. In the past she's usually resolve in inpatient without surgery. Last oral intake was about 1800 hours. She did take some Pepto-Bismol 2 hours ago but it did not help her nausea. She' s having no fevers, chills, rash. Patient states she's had multiple colonoscopies but she's never been told she has diverticulosis. She had NGT placed in ER and vomited up bilious fluid. She rates the pain as 6 out of 10 on a 1-10 scale. Allergies and Home Medications Allergies Coded Allergies: sulfamethoxazole (Verified Allergy, Mild, 04/10/13) trimethoprim (Verified Allergy, Mild, 04/10/13) Sulfa (Sulfonamide Antibiotics) (Verified Adverse Reaction, Mild, HIVES, ) morphine (Unverified Adverse Reaction, Unknown, hallucinations, 01/06/17) Home Medications Aspirin 81 Mg Tabec, 81 MG PO DAILY, (Reported) Cholecalciferol (Vitamin D3) 1,000 Unit Tablet, 1,000 UNIT PO DAILY, (Reported) Docusate Sodium 100 Mg Capsule, 200 MG PO BID for 30 Days Prescribed by: ANTOINE FRAUSTO on 01/08/17 1313 Lisinopril 5 Mg Tablet, 5 MG PO DAILY, #30 for BP Prescribed by: ANTOINE FRAUSTO on 01/08/17 1313 Mu-Vits-Min Th/Lycopene/Lutein 1 Each Tablet, 1 EACH PO DAILY, (Reported) Vitamin B Complex 1 Each Capsule, 1 EACH PO DAILY, (Reported) Past Qyzwnbd-Kuwilf-Crybly Hx Patient Social History Alcohol Use: Denies Use Recreational Drug Use: No Smoking Status: Never a Smoker 2nd Hand Smoke Exposure: No Recent Foreign Travel: No Contact w/Someone Who Travel: No Recent Infectious Disease Expo: No Recent Hopitalizations: No Immunizations Up To Date Tetanus Booster (TDap): Unknown PED Vaccines UTD: No Date of Pneumonia Vaccine: May 08, 2015 Seasonal Allergies Seasonal Allergies: No Surgeries History of Surgeries: Yes (HERNIAS, VEINS TAKEN OUT OF RT LEG) Surgeries: Gallbladder, Hysterectomy Respiratory History of Respiratory Disorde: No Cardiovascular History 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 ) Cardiac Disorders: Hypertension Neurological History of Neurological Disord: No Reproductive System Hx Reproductive Disorders: No Sexually Transmitted Disease: No ALL ROUND BUTCHER History: Hysterectomy, Menopausal Genitourinary History of Genitourinary Disor: Yes Genitourinary Disorders: UTI-Chronic Gastrointestinal History of Gastrointestinal Di: Yes Gastrointestinal Disorders: Gastroesophageal Reflux, Obstructive Bowel Musculoskeletal History of Musculoskeletal Dis: Yes Musculoskeletal Disorders: Arthritis Endocrine History of Endocrine Disorders: No HEENT History of HEENT Disorders: Yes HEENT Disorders: Macular Degeneration Loss of Vision: Bilateral Hearing Impairment: Denies Cancer History of Cancer: No Psychosocial History of Psychiatric Problem: No Integumentary History of Skin or Integumenta: No Blood Transfusions History of Blood Disorders: No Adverse Reaction to a Blood Tr: No Family Medical History Significant Family History: CAD Over 55 Years Old (father) Family Medial History: Colon cancer G8 SISTER, G8 SISTER, G8 BROTHER, G8 BROTHER, G8 BROTHER, FH: breast cancer G8 SISTER FH: lung cancer G8 BROTHER, FH: myocardial infarction 19 FATHER, , Age:74 FH: thyroid cancer DAUGHTER Review of Systems-General Constitutional: chills, No diaphoresis, malaise, weakness EENTM: vision loss, No epistaxis, No throat swelling Respiratory: No cough, No hemoptysis, No short of breath Cardiovascular: No chest pain, No edema, No palpitations Gastrointestinal: abdominal pain, constipation, No hematemesis, nausea, vomiting Genitourinary: No dysuria, No frequency, No hematuria Musculoskeletal: joint pain, joint swelling, muscle stiffness Skin: No change in color, No change in hair/nails Psychiatric/Neurological: Denies Anxiety, Denies Depressed, Denies Headache, Denies Seizure, Denies Tremors Other pt denies any abnormal bruising or bleeding, no heat or cold intolerance Physical Exam-General Problems Physical Exam Vital Signs Vital Sign - Last 12Hours 07/10/17 19:20 Temp 98.0 Pulse 70 Resp 18 B/P (MAP) 171/85 (113) Pulse Ox 98 O2 Delivery Room Air Capillary Refill : Less Than 3 Seconds General Appearance: WD/WN, moderate distress Eyes: Bilateral Eye PERRL, Bilateral Eye EOMI HEENT: pharynx normal, No scleral icterus (R), No scleral icterus (L), No pale conjunctivae (R), No pale conjunctivae (L) Neck: non-tender, supple, normal inspection, No thyromegaly Respiratory: chest non-tender, lungs clear, normal breath sounds, no respiratory distress, no accessory muscle use Cardiovascular: regular rate, rhythm, no edema, no murmur ( ) Gastrointestinal: soft, no organomegaly, distended, No rebound, tenderness ( tender diffusely) Rectal: deferred Back: no CVA tenderness, no vertebral tenderness Extremities: normal range of motion, non-tender, normal inspection, no pedal edema, no calf tenderness Neurologic/Psychiatric: wellness trainer II-XII nml as tested, no motor/sensory deficits, alert, normal mood/affect, oriented x 3 Skin: normal color, warm/dry Lymphatic: no adenopathy (neck, axilla or groin) Data Review Labs Laboratory Tests 07/10/17 20:08: White Blood Count 10.5, Red Blood Count 4.66, Hemoglobin 14.4, Hematocrit 44, Mean Corpuscular Volume 94, Mean Corpuscular Hemoglobin 31, Mean Corpuscular Hemoglobin Concent 33, Red Cell Distribution Width 13.5, Platelet Count 252, Mean Platelet Volume 10.8H, Neutrophils (%) (Auto) 81H, Lymphocytes (%) (Auto) 13, Monocytes (%) (Auto) 5, Eosinophils (%) (Auto) 1, Basophils (%) (Auto) 0, Neutrophils # (Auto) 8.5H, Lymphocytes # (Auto) 1.4, Monocytes # (Auto) 0.5, Eosinophils # (Auto) 0.1, Basophils # (Auto) 0.0, Sodium Level 141, Potassium Level 4.1, Chloride Level 107, Carbon Dioxide Level 23, Anion Gap 11, Blood Urea Nitrogen 18, Creatinine 1.00, Estimat Glomerular Filtration Rate 53, BUN/ Creatinine Ratio 18, Glucose Level 118H, Calcium Level 9.6, Magnesium Level 2.1 , Total Bilirubin 0.8, Aspartate Amino Transf (AST/SGOT) 19, Alanine Aminotransferase (ALT/SGPT) 15, Alkaline Phosphatase 54, Total Protein 7.3, Albumin 4.0 07/10/17 21:39: Urine Color YELLOW, Urine Clarity CLEAR, Urine pH 6, Urine Specific [place] 1.020, Urine Protein NEGATIVE, Urine Glucose (UA) NEGATIVE, Urine Ketones NEGATIVE, Urine Nitrite NEGATIVE, Urine Bilirubin NEGATIVE, Urine Urobilinogen NORMAL, Urine Leukocyte Esterase 3+H, Urine RBC (Auto) NEGATIVE, Urine RBC NONE , Urine WBC 25-50H, Urine Squamous Epithelial Cells 2-5, Urine Crystals NONE, Urine Bacteria TRACE, Urine Casts NONE, Urine Mucus NEGATIVE, Urine Culture Indicated YES Assessment/Plan Assessment/Plan Assessment/Plan 1. PSBO 2. HTN\ 3. Arthritis Pt is being admitted, NPO, IV fluids, anti-emetics, pain control and IV ABX. She had a CT which showed thickening somewhere in the ileum; abdominal flate plate ordered for am, hopefully contrast will get into large intestine. If contrast does not make it through and her symptoms do not improve, the next step may be a small bowel follow through. Will follow along, thanks for the consult. MIRIAN LONG DO Jul 10, 2017 22:47
[2017-07-10] MEDS ORDERED: ONDANSETRON 4 MG/2 ML (SDV) Z0FRAN ONE (23:01)
[2017-07-10 23:52] VITALS: BP 138/70
[2017-07-11] MEDS ORDERED: LACTATED RINGERS 1,000 ML IV ONE
[2017-07-11] MEDS: LACTATED RINGERS 1,000 ML IV SCH ×3 (00:08→17:43)
[2017-07-11 04:00] VITALS: BP 132/64
[2017-07-11] MEDS: PIPERACILLIN/TAZOBACTAM 4.5 GM/NS100 ML IVPB IV SCH ×6 (04:40→19:55)
[2017-07-11 05:00] LABS: BASOPHILS % (AUTO) 0 % (0-10); EOSINOPHILS % (AUTO) 1 % (0-10); LYMPHOCYTES % (AUTO) 15 % (12-44); MEAN CORPUSCULAR HEMOGLOBIN 31 PG (25-34); MEAN CORPUSCULAR HGB CONC 33 G/DL (32-36); MEAN CORPUSCULAR VOLUME 95 FL (80-99); MEAN PLATELET VOLUME 10.6 FL (7.4-10.4); MONOCYTES # (AUTO) 0.5 X 10^3 (0.0-1.0); MONOCYTES % (AUTO) 7 % (0-12); NEUTROPHILS # (AUTO) 5.1 X 10^3 (1.8-7.8); NEUTROPHILS % (AUTO) 77 % (42-75); PLATELET COUNT 233 10^3/uL (130-400); RED BLOOD COUNT 4.23 10^6/uL (4.35-5.85); RED CELL DISTRIBUTION WIDTH 13.4 % (10.0-14.5); WHITE BLOOD COUNT 6.7 10^3/uL (4.3-11.0)
[2017-07-11 05:17] LABS: ALANINE AMINOTRANSFERASE 11 U/L (0-55); ALBUMIN 3.2 GM/DL (3.2-4.5); ANION GAP 9 MMOL/L (5-14); ASPARTATE AMINO TRANSFERASE 14 U/L (5-34); BILIRUBIN,TOTAL 1.4 MG/DL (0.1-1.0); BLOOD UREA NITROGEN 15 MG/DL (7-18); BUN/CREATININE RATIO 17; CALCIUM 8.6 MG/DL (8.5-10.1); CARBON DIOXIDE 24 MMOL/L (21-32); CHLORIDE 110 MMOL/L (98-107); CREATININE SERUM 0.86 MG/DL (0.60-1.30); GFR ESTIMATED > 60; GLUCOSE 109 MG/DL (70-105); POTASSIUM 4.3 MMOL/L (3.6-5.0); SODIUM 143 MMOL/L (135-145); TOTAL PROTEIN 5.6 GM/DL (6.4-8.2)
--- NOTE | 2017-07-11 07:46 | Diagnostic Imaging Report ---
INDICATION: Tube placement. TECHNIQUE: Single view of the abdomen 11:29 PM. CORRELATION STUDY: 07/10/2017. FINDINGS: Gastric tube has been advanced since prior study with tip in the central aspect of the abdomen likely within the region of the body of the stomach. Bowel gas pattern with generalized paucity of gas. The air-fluid level in the stomach fundus. IMPRESSION: Gastric tube tip likely at the region of the body of the stomach. Dictated by: Dictated on workstation # [id number]
--- NOTE | 2017-07-11 07:59 | Diagnostic Imaging Report ---
INDICATION: Small bowel obstruction, tube placement. TECHNIQUE: 2 portable supine views of the abdomen 10:19 PM. CORRELATION STUDY: 01/07/2017. FINDINGS: A gastric tube is present with tip in the left upper quadrant likely within the proximal body of the stomach. Side port is likely just at the level of the EG junction. Lung bases are clear. There is generalized paucity of bowel gas. Contrast material in the genitourinary collecting system. Leftward curvature of the lumbar spine. IMPRESSION: Gastric tube tip likely within the region of the proximal body of the stomach. Dictated by: Dictated on workstation # [id number]
[2017-07-11 08:00] VITALS: BP 134/76
--- NOTE | 2017-07-11 10:59 | Diagnostic Imaging Report ---
INDICATION: Followup small bowel obstruction. COMPARISON: 07/10/2017. FINDINGS: Enteric tube tip is partially visualized in the mid stomach. There are a few gas filled but nondilated loops of small bowel throughout the abdomen. There is contrast material within the colon from prior contrast enhanced CT. There is also iodinated contrast within the urinary bladder. Degenerative levocurvature of the lumbar spine. Cholecystectomy. IMPRESSION: 1. No high-grade small bowel destruction as the administered oral contrast from yesterday's CT is present in the colon. Partial small bowel obstruction could be present. Dictated by: Dictated on workstation # [id number]
[2017-07-11 12:00] VITALS: BP 135/73
--- NOTE | 2017-07-11 12:48 | Progress Note ---
Subjective Time Seen by Provider: 12:17 Subjective/Events-last exam Pt seen and examined, states she still has some abdominal pain. She denies any further episodes of emesis and not really complaining of nausea. She has gotten up to go to the bathroom (urinate) and has sat in chair. Review of Systems General: No Chills, No Night Sweats HEENT: No Head Aches Pulmonary: No Dyspnea, No Cough Cardiovascular: No: Chest Pain Gastrointestinal: Nausea (very minimal), Abdominal Pain, No: Vomiting Objective Exam Vital Signs Date Time Temp Pulse Resp B/P (MAP) Pulse Ox O2 Delivery O2 Flow Rate FiO2 07/11/17 09:00 Room Air 07/11/17 08:00 98.0 71 18 134/76 (95) 97 Room Air 07/11/17 04:00 97.5 89 18 132/64 (86) 94 Room Air 07/11/17 00:36 Room Air 07/10/17 23:52 98.2 97 17 138/70 (92) 96 Room Air 07/10/17 23:40 94 18 99 Room Air 07/10/17 19:20 98.0 70 18 171/85 (113) 98 Room Air I & O 07/11/17 07:00 Intake Total 2200 ml Output Total 150 ml Balance 2050 ml Capillary Refill : Less Than 3 SecondsLess Than 3 Seconds General Appearance: No Apparent Distress (pt looks much better than last night) , WD/WN HEENT: Pharynx Normal, No Scleral Icterus (L), No Scleral Icterus (R), Other ( NGT in place with bilious drainage) Respiratory: Chest Non Tender, Lungs Clear, Normal Breath Sounds, No Accessory Muscle Use, No Respiratory Distress Cardiovascular: Regular Rate, Rhythm, No Murmur Peripheral Pulses: 2+ Radial Pulses (R), 2+ Radial Pulses (L) Gastrointestinal: normal bowel sounds (on the left side but right side especially upper quadrant has hyperactive L sounds.), soft, tenderness (mild and epigastric and right upper quadrant but very tender to palpation in the left lower quadrant.) Neurologic/Psychiatric: Alert, Oriented x3, hose wrapper II-XII Norm as Tested Skin: Normal Color, Warm/Dry Results Lab Laboratory Tests 07/10/17 20:08: White Blood Count 10.5, Red Blood Count 4.66, Hemoglobin 14.4, Hematocrit 44, Mean Corpuscular Volume 94, Mean Corpuscular Hemoglobin 31, Mean Corpuscular Hemoglobin Concent 33, Red Cell Distribution Width 13.5, Platelet Count 252, Mean Platelet Volume 10.8H, Neutrophils (%) (Auto) 81H, Lymphocytes (%) (Auto) 13, Monocytes (%) (Auto) 5, Eosinophils (%) (Auto) 1, Basophils (%) (Auto) 0, Neutrophils # (Auto) 8.5H, Lymphocytes # (Auto) 1.4, Monocytes # (Auto) 0.5, Eosinophils # (Auto) 0.1, Basophils # (Auto) 0.0, Sodium Level 141, Potassium Level 4.1, Chloride Level 107, Carbon Dioxide Level 23, Anion Gap 11, Blood Urea Nitrogen 18, Creatinine 1.00, Estimat Glomerular Filtration Rate 53, BUN/ Creatinine Ratio 18, Glucose Level 118H, Calcium Level 9.6, Magnesium Level 2.1 , Total Bilirubin 0.8, Aspartate Amino Transf (AST/SGOT) 19, Alanine Aminotransferase (ALT/SGPT) 15, Alkaline Phosphatase 54, Total Protein 7.3, Albumin 4.0 07/10/17 21:39: Urine Color YELLOW, Urine Clarity CLEAR, Urine pH 6, Urine Specific [place] 1.020, Urine Protein NEGATIVE, Urine Glucose (UA) NEGATIVE, Urine Ketones NEGATIVE, Urine Nitrite NEGATIVE, Urine Bilirubin NEGATIVE, Urine Urobilinogen NORMAL, Urine Leukocyte Esterase 3+H, Urine RBC (Auto) NEGATIVE, Urine RBC NONE , Urine WBC 25-50H, Urine Squamous Epithelial Cells 2-5, Urine Crystals NONE, Urine Bacteria TRACE, Urine Casts NONE, Urine Mucus NEGATIVE, Urine Culture Indicated YES 07/11/17 04:33: White Blood Count 6.7, Red Blood Count 4.23L, Hemoglobin 13.3, Hematocrit 40, Mean Corpuscular Volume 95, Mean Corpuscular Hemoglobin 31, Mean Corpuscular Hemoglobin Concent 33, Red Cell Distribution Width 13.4, Platelet Count 233, Mean Platelet Volume 10.6H, Neutrophils (%) (Auto) 77H, Lymphocytes (%) (Auto) 15, Monocytes (%) (Auto) 7, Eosinophils (%) (Auto) 1, Basophils (%) (Auto) 0, Neutrophils # (Auto) 5.1, Lymphocytes # (Auto) 1.0, Monocytes # (Auto) 0.5, Eosinophils # (Auto) 0.0, Basophils # (Auto) 0.0, Sodium Level 143, Potassium Level 4.3, Chloride Level 110H, Carbon Dioxide Level 24, Anion Gap 9, Blood Urea Nitrogen 15, Creatinine 0.86, Estimat Glomerular Filtration Rate > 60, BUN/ Creatinine Ratio 17, Glucose Level 109H, Calcium Level 8.6, Total Bilirubin 1.4H , Aspartate Amino Transf (AST/SGOT) 14, Alanine Aminotransferase (ALT/SGPT) 11, Alkaline Phosphatase 42, Total Protein 5.6L, Albumin 3.2 Assessment/Plan Assessment/Plan Assessment/Plan 1. PSBO 2. HTN 3. Arthritis Abdominal xray from this am shows contrast in the large intestine. Will await flatus and BM. Pt told to ambulate with assist and chew gum; both will help with return of bowel function. Will leave ngt in place, if she has flatus will clamp tube; but wait to remove until we are sure of bowel function (so that it does not have to be replaced if removed to early). Pt otherwise comfortable. Clinical Quality Measures DVT/VTE Risk/Contraindication: Risk Factor Score Per Nursin RFS Level Per Nursing on Admit: 4+=Very High MIRIAN OLNG DO Jul 11, 2017 12:48
--- NOTE | 2017-07-11 12:56 | History & Physical-Hospitalist ---
HPI History of Present Illness: HPI/Chief Complaint The patient is an 81-year-old white female known to me for many years I provided her primary care needs for many years. She was admitted after she presented to the emergency room last evening with complaints of right upper quadrant abdominal pain. This occurred about 3 hours prior to her presentation. She reported nausea and had vomited once. She reported bowel movements 2 earlier in the day. She has had multiple previous contacts going back a number of years for small bowel obstruction. This followed an hysterectomy with a complication of bowel perforation. Source: patient Exam Limitations: no limitations Date Seen 07/11/17 Time Seen by Provider: 12:53 Attending Physician Michael Ryan MD PCP Jessica Fisher DO Referring Physician Date of Admission Jul 10, 2017 at 22:00 Home Medications & Allergies Home Medications Reviewed patient Home Medication Reconciliation Form Allergies Allergies Coded Allergies sulfamethoxazole (Verified Allergy, Mild, 04/10/13) trimethoprim (Verified Allergy, Mild, 04/10/13) Sulfa (Sulfonamide Antibiotics) (Verified Adverse Reaction, Mild, HIVES, ) morphine (Unverified Adverse Reaction, Unknown, hallucinations, 01/06/17) Past Nvysrie-Pyxily-Dbakxv Hx Patient Social History Alcohol Use: Denies Use Recreational Drug Use: No Smoking Status: Never a Smoker 2nd Hand Smoke Exposure: No Physical Abuse Screen: No Sexual Abuse: No Recent Foreign Travel: No Contact w/other who traveled: No Recent Hopitalizations: No Recent Infectious Disease Expo: No Immunizations Up To Date Tetanus Booster (TDap): Unknown Pediatric: No Date of Pneumonia Vaccine: May 08, 2015 Date of Influenza Vaccine: Apr 26, 2017 Seasonal Allergies Seasonal Allergies: No Surgeries Yes (HERNIAS, VEINS TAKEN OUT OF RT LEG) Gallbladder, Hysterectomy Respiratory No Cardiovascular 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 ) Hypertension Neurological No Reproductive System Hx Reproductive Disorders: No Sexually 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, Menopausal Genitourinary Yes UTI-Chronic Gastrointestinal Yes Gastroesophageal Reflux, Obstructive Bowel Musculoskeletal Yes Arthritis Endocrine History of Endocrine Disorders: No HEENT History of HEENT Disorders: Yes HEENT Disorders: Macular Degeneration Loss of Vision: Bilateral Hearing Impairment: Denies Cancer No Psychosocial History of Psychiatric Problem: No Integumentary History of Skin or Integumenta: No Blood Transfusions History of Blood Disorders: No Adverse Reaction to a Blood Tr: No Family Medical History Significant Family History: CAD Over 55 Years Old (father) Family Hx: Colon cancer G8 SISTER, G8 SISTER, G8 BROTHER, G8 BROTHER, G8 BROTHER, FH: breast cancer G8 SISTER FH: lung cancer G8 BROTHER, FH: myocardial infarction 19 FATHER, , Age:74 FH: thyroid cancer DAUGHTER Review of Systems Constitutional: see HPI EENTM: no symptoms reported Respiratory: no symptoms reported Cardiovascular: no symptoms reported Gastrointestinal: see HPI, abdominal pain, nausea, vomiting Musculoskeletal: no symptoms reported Skin: no symptoms reported Psychiatric/Neurological: No Symptoms Reported Physical Exam Physical Exam Vital Signs Vital Sign - Last 12Hours 07/10/17 19:20 Temp 98.0 Pulse 70 Resp 18 B/P (MAP) 171/85 (113) Pulse Ox 98 O2 Delivery Room Air Capillary Refill : Less Than 3 SecondsLess Than 3 Seconds General Appearance: Mild Distress Eyes: Bilateral Eye Normal Inspection HEENT: Normal ENT Inspection Neck: Full Range of Motion, Normal Inspection, Non Tender, Supple, Carotid Bruit Respiratory: Chest Non Tender, Lungs Clear, Normal Breath Sounds, No Accessory Muscle Use, No Respiratory Distress Cardiovascular: Regular Rate, Rhythm, No Edema, No Gallop, No JVD, No Murmur, Normal Peripheral Pulses Gastrointestinal: Tenderness (mild tenderness to palpation. No bowel sounds are heard.) Back: Normal Inspection Extremity: Normal Capillary Refill, Normal Inspection, Normal Range of Motion, Non Tender, No Calf Tenderness, No Pedal Edema Neurologic/Psychiatric: Alert, Oriented x3, No Motor/Sensory Deficits, Normal Mood/Affect Skin: Normal Color, Warm/Dry Lymphatic: No Adenopathy Results Results/Procedures Lab Laboratory Tests 07/10/17 20:08 07/11/17 04:33 Assessment/Plan Admission Diagnosis Recurrent small bowel obstruction. Assessment and Plan IV fluids. Bowel decompression with NG tube. Await guidance from Dr. Colin Clinical Quality Measures DVT/VTE Risk/Contraindication: Risk Factor Score Per Nursin RFS Level Per Nursing on Admit: 4+=Very High MICHAEL RYAN MD Jul 11, 2017 12:56
[2017-07-11 15:45] VITALS: BP 143/68
[2017-07-11 20:00] VITALS: BP 166/77
[2017-07-11] MEDS: ONDANSETRON 4 MG/2 ML (SDV) Z0FRAN IV PRN (20:13)
[2017-07-12 00:58] VITALS: BP 144/71
[2017-07-12] MEDS: LACTATED RINGERS 1,000 ML IV SCH ×3 (02:18→20:18)
[2017-07-12] MEDS: ONDANSETRON 4 MG/2 ML (SDV) Z0FRAN IV PRN ×3 (04:07→20:09)
[2017-07-12] MEDS: PIPERACILLIN/TAZOBACTAM 4.5 GM/NS100 ML IVPB IV SCH ×2 (04:12)
[2017-07-12 04:28] VITALS: BP 167/84
[2017-07-12 08:00] VITALS: BP 163/96
[2017-07-12] MEDS: fentaNYL INJECTION 100 MCG/2 ML AMP IV PRN ×2 (08:29→20:09)
--- NOTE | 2017-07-12 11:26 | Progress Note-Hospitalist ---
Standard Progress Note Progress Notes/Assess & Plan Date Seen 07/12/17 Time Seen by Provider: 11:26 Diagnosis Recurrent small bowel obstruction. Assess & Plan/Chief Complaint The patient reports continued abdominal pain and distention. Her NG tube is draining a considerable amount of dark liquid material. She is concerned about the possibility of requiring surgery which she would prefer not to do. Physical exam: Lungs are clear to auscultation. CV is regular without murmur. The abdomen is somewhat tender to palpation. Bowel sounds are very infrequent. Extremities show no pedal edema. Impression: Recurrent small bowel obstruction Plan: Await surgery opinion. Continue IV fluids and nasogastric drainage Labs Laboratory Tests 07/10/17 20:08 07/11/17 04:33 NERI RYAN MD Jul 12, 2017 11:26
[2017-07-12 12:00] VITALS: BP 155/88
--- NOTE | 2017-07-12 12:46 | Progress Note ---
Subjective Time Seen by Provider: 11:46 Subjective/Events-last exam Pt seen and examined, states still has nausea but no vomiting. The fluid in suction canister looks, dark brown possibly red? Pt has very minimal pain, maybe 2 or 3 out of 10. States she is passing some gas, but no BM. She states last BM was Thursday when she took laxative. Review of Systems General: No Chills, No Night Sweats Pulmonary: No Dyspnea, No Cough Cardiovascular: No: Chest Pain Gastrointestinal: Nausea, Abdominal Pain, No: Vomiting Objective Exam Vital Signs Date Time Temp Pulse Resp B/P (MAP) Pulse Ox O2 Delivery O2 Flow Rate FiO2 07/12/17 08:00 98.7 94 20 163/96 (118) 95 Room Air 07/12/17 07:55 Room Air 07/12/17 04:28 99.3 87 20 167/84 (111) 95 Room Air 07/12/17 00:58 99.3 79 16 144/71 (95) 92 Room Air 07/11/17 20:00 98.8 79 18 166/77 (106) 95 Room Air 07/11/17 15:45 98.6 75 18 143/68 (93) 95 Room Air I & O 07/12/17 07:00 Intake Total 3300 ml Output Total 1650 ml Balance 1650 ml Capillary Refill : Less Than 3 SecondsLess Than 3 Seconds General Appearance: WD/WN, Mild Distress HEENT: Pharynx Normal, No Pale Conjunctivae (L), No Pale Conjunctivae (R), Other (NGT in place) Neck: Full Range of Motion, Non Tender, Supple, Carotid Bruit Respiratory: Chest Non Tender, Lungs Clear, Normal Breath Sounds, No Accessory Muscle Use, No Respiratory Distress Cardiovascular: Regular Rate, Rhythm, No Edema, No Murmur, Normal Peripheral Pulses Peripheral Pulses: 2+ Radial Pulses (R), 2+ Radial Pulses (L) Gastrointestinal: normal bowel sounds (on the left side but right side especially upper quadrant has hyperactive L sounds.), soft, tenderness (mild and epigastric and right upper quadrant but very tender to palpation in the left lower quadrant.) Extremity: No Calf Tenderness, No Pedal Edema Neurologic/Psychiatric: Alert, Oriented x3, Normal Mood/Affect Lymphatic: No Adenopathy (neck, axilla or groin) Results Lab Microbiology 07/10/17 Urine Culture - Final, Complete Assessment/Plan Assessment/Plan Assessment/Plan 1. PSBO 2. HTN 3. Arthritis Abdominal exam is soft, + flatus but no BM. Pt told to ambulate with assist and chew gum; both will help with return of bowel function. Will clamp ngt and hemoccult fluid in tube. Need to wait to remove until we are sure of bowel function (so that it does not have to be replaced if removed to early). Ok for pt to have ice chips. Stop ABX. Pt otherwise comfortable. Clinical Quality Measures DVT/VTE Risk/Contraindication: Risk Factor Score Per Nursin RFS Level Per Nursing on Admit: 4+=Very High MIRIAN LONG DO Jul 12, 2017 12:46
[2017-07-12 13:20] LABS: OCCULT BLOOD NEGATIVE QC NEGATIVE (NEGATIVE); OCCULT BLOOD POSITIVE QC POSITIVE (POSITIVE); OCCULT BLOOD,GASTRIC FLUID POSITIVE (NEGATIVE)
[2017-07-12 16:00] VITALS: BP 169/82
[2017-07-12] MEDS ORDERED: DOCU100C37 PO (16:06)
[2017-07-12] MEDS ORDERED: ASPI-983 PO (16:06)
[2017-07-12] MEDS ORDERED: MULT-1029 PO (16:06)
[2017-07-12] MEDS ORDERED: SENN-148 PO (16:06)
[2017-07-12 20:00] VITALS: BP 167/83
[2017-07-13] VITALS (8 sets, daily range): BP systolic 137–184; BP diastolic 72–91
[2017-07-13] MEDS: LACTATED RINGERS 1,000 ML IV SCH ×3 (05:07→22:56)
[2017-07-13] MEDS: PANTOPRAZOLE 40 MG/10 ML (PROTONIX) VIAL IV SCH (08:25)
--- NOTE | 2017-07-13 12:33 | Progress Note (SOAP) ---
Subjective Date Seen by Provider: Jul 13, 2017 Time Seen by Provider: 12:31 Subjective/Events-last exam Fwup partial SBO, hypertension. NG tube clamped. Has passed flatus. Nausea comes and goes. Objective Exam Vital Signs Date Time Temp Pulse Resp B/P (MAP) Pulse Ox O2 Delivery O2 Flow Rate FiO2 07/13/17 09:18 Room Air 07/13/17 07:47 98.3 77 20 168/72 (104) 93 Room Air 07/13/17 04:00 99.0 76 20 170/81 (110) 95 Room Air 07/13/17 00:00 99.0 82 21 159/78 (105) 96 Room Air 07/12/17 21:00 Room Air 07/12/17 20:00 99.2 81 21 167/83 (111) 96 Room Air 07/12/17 16:00 99.5 98 20 169/82 (111) 97 Room Air I & O 07/13/17 07:00 Intake Total 1000 ml Output Total 2525 ml Balance -1525 ml Capillary Refill : Less Than 3 SecondsLess Than 3 Seconds General Appearance: No Apparent Distress HEENT: Other (NG tube in place) Respiratory: Lungs Clear Cardiovascular: Regular Rate, Rhythm Gastrointestinal: normal bowel sounds, non tender, soft Extremity: Non Tender, No Calf Tenderness, No Pedal Edema Neurologic/Psychiatric: Alert, Oriented x3 Results Lab Laboratory Tests 07/12/17 13:03: Gastric Fluid Occult Blood POSITIVE Microbiology 07/10/17 Urine Culture - Final, Complete Assessment/Plan Assessment/Plan Assess & Plan/Chief Complaint 1. Partial SBO--NG tube still in place but clamped--per surgery 2. Hypertension--start IV lopressor since still NPO Clinical Quality Measures DVT/VTE Risk/Contraindication: Risk Factor Score Per Nursin RFS Level Per Nursing on Admit: 4+=Very High DRE MCDOWELL DO Jul 13, 2017 12:33 pm
[2017-07-13] MEDS ORDERED: meTOprolol 5 MG/5 ML (LOPRESSOR) VIAL IV NR (12:50)
--- NOTE | 2017-07-13 12:56 | Progress Note ---
Subjective Time Seen by Provider: 12:28 Subjective/Events-last exam Pt seen and examined, states very minimal pain. Denies nausea or vomiting, states + flatus "at least 10 times". No BM yet. Review of Systems General: No Chills, No Night Sweats Pulmonary: No Cough Cardiovascular: No: Chest Pain Gastrointestinal: Abdominal Pain, No: Nausea, Vomiting Objective Exam Vital Signs Date Time Temp Pulse Resp B/P (MAP) Pulse Ox O2 Delivery O2 Flow Rate FiO2 07/13/17 09:18 Room Air 07/13/17 07:47 98.3 77 20 168/72 (104) 93 Room Air 07/13/17 04:00 99.0 76 20 170/81 (110) 95 Room Air 07/13/17 00:00 99.0 82 21 159/78 (105) 96 Room Air 07/12/17 21:00 Room Air 07/12/17 20:00 99.2 81 21 167/83 (111) 96 Room Air 07/12/17 16:00 99.5 98 20 169/82 (111) 97 Room Air I & O 07/13/17 07:00 Intake Total 1000 ml Output Total 2525 ml Balance -1525 ml Capillary Refill : Less Than 3 SecondsLess Than 3 Seconds General Appearance: No Apparent Distress, WD/WN HEENT: PERRL/EOMI, Pharynx Normal, Other (NG tube in place) Neck: Full Range of Motion, Non Tender, Supple, Carotid Bruit Respiratory: Lungs Clear, No Accessory Muscle Use Cardiovascular: Regular Rate, Rhythm, No Murmur Peripheral Pulses: 2+ Radial Pulses (R), 2+ Radial Pulses (L) Gastrointestinal: normal bowel sounds, non tender, soft Extremity: Non Tender, No Calf Tenderness, No Pedal Edema Neurologic/Psychiatric: Alert, Oriented x3 Lymphatic: No Adenopathy (neck, axilla or groin) Results Lab Laboratory Tests 07/12/17 13:03: Gastric Fluid Occult Blood POSITIVE Microbiology 07/10/17 Urine Culture - Final, Complete Assessment/Plan Assessment/Plan Assessment/Plan 1. Partial SBO--seems to be resolving, will dc ngt and start clears 2. Hypertension--on IV lopressor, can probably switch back to her oral meds now Clinical Quality Measures DVT/VTE Risk/Contraindication: Risk Factor Score Per Nursin RFS Level Per Nursing on Admit: 4+=Very High MIRIAN LONG DO Jul 13, 2017 12:56
[2017-07-13] MEDS: meTOprolol 5 MG/5 ML (LOPRESSOR) VIAL IV SCH ×2 (18:49→23:48)
[2017-07-14 04:00] VITALS: BP 168/82
[2017-07-14 05:26] LABS: BASOPHILS % (AUTO) 0 % (0-10); EOSINOPHILS # (AUTO) 0.5 10^3/uL (0.0-0.3); EOSINOPHILS % (AUTO) 6 % (0-10); LYMPHOCYTES % (AUTO) 26 % (12-44); MEAN CORPUSCULAR HEMOGLOBIN 32 PG (25-34); MEAN CORPUSCULAR HGB CONC 33 G/DL (32-36); MEAN CORPUSCULAR VOLUME 94 FL (80-99); MEAN PLATELET VOLUME 11.2 FL (7.4-10.4); MONOCYTES # (AUTO) 0.5 X 10^3 (0.0-1.0); MONOCYTES % (AUTO) 6 % (0-12); NEUTROPHILS # (AUTO) 4.7 X 10^3 (1.8-7.8); NEUTROPHILS % (AUTO) 61 % (42-75); PLATELET COUNT 132 10^3/uL (130-400); RED BLOOD COUNT 4.13 10^6/uL (4.35-5.85); RED CELL DISTRIBUTION WIDTH 12.9 % (10.0-14.5); WHITE BLOOD COUNT 7.6 10^3/uL (4.3-11.0)
[2017-07-14 05:34] LABS: ALANINE AMINOTRANSFERASE 11 U/L (0-55); ALBUMIN 3.3 GM/DL (3.2-4.5); ANION GAP 11 MMOL/L (5-14); ASPARTATE AMINO TRANSFERASE 22 U/L (5-34); BILIRUBIN,TOTAL 1.4 MG/DL (0.1-1.0); BLOOD UREA NITROGEN 11 MG/DL (7-18); BUN/CREATININE RATIO 15; CALCIUM 8.9 MG/DL (8.5-10.1); CARBON DIOXIDE 23 MMOL/L (21-32); CHLORIDE 107 MMOL/L (98-107); CREATININE SERUM 0.72 MG/DL (0.60-1.30); GFR ESTIMATED > 60; GLUCOSE 80 MG/DL (70-105); SODIUM 141 MMOL/L (135-145); TOTAL PROTEIN 6.1 GM/DL (6.4-8.2)
[2017-07-14] MEDS: meTOprolol 5 MG/5 ML (LOPRESSOR) VIAL IV SCH (05:46)
[2017-07-14] MEDS: LACTATED RINGERS 1,000 ML IV SCH ×2 (06:43→08:51)
[2017-07-14 08:00] VITALS: BP 176/86
[2017-07-14] MEDS: PANTOPRAZOLE 40 MG/10 ML (PROTONIX) VIAL IV SCH (08:13)
--- NOTE | 2017-07-14 08:44 | Progress Note (SOAP) ---
Subjective Date Seen by Provider: Jul 14, 2017 Time Seen by Provider: 08:43 Subjective/Events-last exam Fwup partial SBO, hypertension. NG tube out. Has had clear liquids with no N/ V. Passing flatus and BMs. Wants to go home. Objective Exam Vital Signs Date Time Temp Pulse Resp B/P (MAP) Pulse Ox O2 Delivery O2 Flow Rate FiO2 07/14/17 07:00 62 07/14/17 04:00 97.5 74 19 168/82 (110) 94 Room Air 07/14/17 01:00 61 07/13/17 23:46 98.2 69 20 171/91 (117) 95 Room Air 07/13/17 20:30 Room Air 07/13/17 19:39 97.5 72 18 144/82 (102) 96 Room Air 07/13/17 19:00 72 07/13/17 18:50 179/77 (111) 07/13/17 16:00 97.8 72 18 137/80 (99) 96 Room Air 07/13/17 12:00 98.4 68 20 184/88 (120) 96 Room Air 07/13/17 09:18 Room Air I & O 07/14/17 07:00 Intake Total 3610 ml Output Total 1500 ml Balance 2110 ml Capillary Refill : Less Than 3 SecondsLess Than 3 Seconds General Appearance: No Apparent Distress Neck: Supple Respiratory: Lungs Clear Cardiovascular: Regular Rate, Rhythm Gastrointestinal: normal bowel sounds, non tender, soft Neurologic/Psychiatric: Alert, Oriented x3 Results Lab Laboratory Tests 07/14/17 04:53: White Blood Count 7.6, Red Blood Count 4.13L, Hemoglobin 13.0, Hematocrit 39, Mean Corpuscular Volume 94, Mean Corpuscular Hemoglobin 32, Mean Corpuscular Hemoglobin Concent 33, Red Cell Distribution Width 12.9, Platelet Count 132, Mean Platelet Volume 11.2H, Neutrophils (%) (Auto) 61, Lymphocytes (%) (Auto) 26 , Monocytes (%) (Auto) 6, Eosinophils (%) (Auto) 6, Basophils (%) (Auto) 0, Neutrophils # (Auto) 4.7, Lymphocytes # (Auto) 2.0, Monocytes # (Auto) 0.5, Eosinophils # (Auto) 0.5H, Basophils # (Auto) 0.0, Sodium Level 141, Potassium Level 4.0, Chloride Level 107, Carbon Dioxide Level 23, Anion Gap 11, Blood Urea Nitrogen 11, Creatinine 0.72, Estimat Glomerular Filtration Rate > 60, BUN/ Creatinine Ratio 15, Glucose Level 80, Calcium Level 8.9, Total Bilirubin 1.4H, Aspartate Amino Transf (AST/SGOT) 22, Alanine Aminotransferase (ALT/SGPT) 11, Alkaline Phosphatase 38L, Total Protein 6.1L, Albumin 3.3 Microbiology 07/10/17 Urine Culture - Final, Complete Assessment/Plan Assessment/Plan Assess & Plan/Chief Complaint 1. Partial SBO--NG tube out, advance diet, DC per surgery 2. Hypertension--resume oral meds Clinical Quality Measures DVT/VTE Risk/Contraindication: Risk Factor Score Per Nursin RFS Level Per Nursing on Admit: 4+=Very High DRE MCDOWELL DO Jul 14, 2017 8:44 am
[2017-07-14 12:00] VITALS: BP 160/95
--- NOTE | 2017-07-14 15:02 | Progress Note ---
Subjective Time Seen by Provider: 14:41 Subjective/Events-last exam Pt seen and examined, she is dressed and waiting to go home. She is tolerating diet, denies abdominal pain and no nausea or vomiting. + BM's Review of Systems General: No Chills, No Night Sweats HEENT: No Head Aches Pulmonary: No Dyspnea Cardiovascular: No: Chest Pain, Palpitations Gastrointestinal: No: Nausea, Vomiting, Abdominal Pain Objective Exam Vital Signs Date Time Temp Pulse Resp B/P (MAP) Pulse Ox O2 Delivery O2 Flow Rate FiO2 07/14/17 13:00 69 07/14/17 12:00 98.1 67 18 160/95 (116) 97 Room Air 07/14/17 09:00 Room Air 07/14/17 08:00 67 16 176/86 (116) 96 Room Air 07/14/17 07:00 62 07/14/17 04:00 97.5 74 19 168/82 (110) 94 Room Air 07/14/17 01:00 61 07/13/17 23:46 98.2 69 20 171/91 (117) 95 Room Air 07/13/17 20:30 Room Air 07/13/17 19:39 97.5 72 18 144/82 (102) 96 Room Air 07/13/17 19:00 72 07/13/17 18:50 179/77 (111) 07/13/17 16:00 97.8 72 18 137/80 (99) 96 Room Air I & O 07/14/17 07:00 Intake Total 3610 ml Output Total 1500 ml Balance 2110 ml Capillary Refill : Less Than 3 SecondsLess Than 3 Seconds General Appearance: No Apparent Distress, WD/WN HEENT: PERRL/EOMI, Moist Mucous Membranes, Other (NG tube in place) Neck: Supple Respiratory: Lungs Clear, No Accessory Muscle Use, No Respiratory Distress Cardiovascular: Regular Rate, Rhythm, No Murmur Peripheral Pulses: 2+ Radial Pulses (R), 2+ Radial Pulses (L) Gastrointestinal: normal bowel sounds, non tender, soft Neurologic/Psychiatric: Alert, Oriented x3 Lymphatic: No Adenopathy (neck, axilla or groin) Results Lab Laboratory Tests 07/14/17 04:53: White Blood Count 7.6, Red Blood Count 4.13L, Hemoglobin 13.0, Hematocrit 39, Mean Corpuscular Volume 94, Mean Corpuscular Hemoglobin 32, Mean Corpuscular Hemoglobin Concent 33, Red Cell Distribution Width 12.9, Platelet Count 132, Mean Platelet Volume 11.2H, Neutrophils (%) (Auto) 61, Lymphocytes (%) (Auto) 26 , Monocytes (%) (Auto) 6, Eosinophils (%) (Auto) 6, Basophils (%) (Auto) 0, Neutrophils # (Auto) 4.7, Lymphocytes # (Auto) 2.0, Monocytes # (Auto) 0.5, Eosinophils # (Auto) 0.5H, Basophils # (Auto) 0.0, Sodium Level 141, Potassium Level 4.0, Chloride Level 107, Carbon Dioxide Level 23, Anion Gap 11, Blood Urea Nitrogen 11, Creatinine 0.72, Estimat Glomerular Filtration Rate > 60, BUN/ Creatinine Ratio 15, Glucose Level 80, Calcium Level 8.9, Total Bilirubin 1.4H, Aspartate Amino Transf (AST/SGOT) 22, Alanine Aminotransferase (ALT/SGPT) 11, Alkaline Phosphatase 38L, Total Protein 6.1L, Albumin 3.3 Microbiology 07/10/17 Urine Culture - Final, Complete Assessment/Plan Assessment/Plan Assessment/Plan 1. Partial SBO--Ok to DC 2. Hypertension--resume oral meds Clinical Quality Measures DVT/VTE Risk/Contraindication: Risk Factor Score Per Nursin RFS Level Per Nursing on Admit: 4+=Very High MIRIAN LONG DO Jul 14, 2017 15:02
[2017-07-14] MEDS ORDERED: AMLO2.5T PO (17:19)
--- NOTE | 2017-07-14 17:21 | Discharge Inst-Simple/Standard ---
Discharge Inst-Standard Discharge Medications New, Converted or Re-Newed RX: Transmitted to Pharmacy Patient Instructions/Follow Up Plan of Care/Instructions/FU: Fwup with me in 2weeks Activity as Tolerated: Yes Discharge Diet: Low Residue DRE MCDOWELL DO Jul 14, 2017 5:21 pm
--- NOTE | 2017-07-14 17:36 | Discharge Summary ---
Diagnosis/Chief Complaint Date of Admission Jul 10, 2017 at 10:00 pm Date of Discharge Admission Diagnosis Admission Diagnosis 1. Partial Small Bowel Obstruction 2. Hypertension Discharge Diagnosis 1. Partial Small Bowel Obstruction 2. Hypertension Discharge Summary Hospital Course Hospital Course This is an 81 year old female who presented to the emergency room with sudden onset of abdominal pain with nausea and vomiting after eating a large meal. She was found to have a partial small bowel obstruction and admitted for treatment. An NG tube was placed and surgery was consulted. She had IV zofran for nausea, IVFs, and IV fentanyl for pain. The NG tube was left in place for her first 2 hospital days and a repeat KUB showed oral contrast from the CT had moved into the large intestine and she was passing flatus by the second hospital day. She was instructed to ambulate and chew gum. The following day her NG tube was clamped and she was given ice chips. She had no increase in pain or nausea and continued to pass flatus and even had a small bowel movement so the NG tube was removed and she was started on clear liquids. She tolerated the clear liquids with no nausea or vomiting and no increase in pain. She was advanced to a soft diet and tolerated this with no increase in nausea and pain. When surgery came to see her she was sitting in a chair, dressed, and ready to go home. She did require IV lopressor for her blood pressure during her hospital stay and this was switched to oral metoprolol once she was taking orals. After surgery saw her and said it was okay for her to be dismissed, the patient left the hospital without receiving her discharge orders or paperwork. In fact, she left before discharge orders were even put in. The nurse stated she would call the patient and go over her discharge orders with her and have her followup with me in my office in 2 weeks. Labs Laboratory Tests 07/12/17 13:03: 07/14/17 04:53: Red Blood Count 4.13L, Mean Platelet Volume 11.2H, Eosinophils # (Auto) 0.5H, Total Bilirubin 1.4H, Alkaline Phosphatase 38L, Total Protein 6.1L Procedures None. Consultations Surgery--Dr. Colin Discharge Physical Examination Allergies: Coded Allergies: sulfamethoxazole (Verified Allergy, Mild, 04/10/13) trimethoprim (Verified Allergy, Mild, 04/10/13) Sulfa (Sulfonamide Antibiotics) (Verified Adverse Reaction, Mild, HIVES, ) morphine (Unverified Adverse Reaction, Unknown, hallucinations, 01/06/17) Vitals & I&Os Vital Signs Date Time Temp Pulse Resp B/P (MAP) Pulse Ox O2 Delivery O2 Flow Rate FiO2 07/14/17 13:00 69 07/14/17 12:00 98.1 18 160/95 (116) 97 Room Air General Appearance: Alert, Oriented X3, Cooperative, No Acute Distress Respiratory: Clear to Auscultation Cardiovascular: Regular Rate Abdominal: Normal Bowel Sounds, Soft, No Tenderness Extremities: No Clubbing, No Cyanosis, No Edema Neuro: Normal Gait, Normal Speech Psych/Mental Status: Mental Status NL, Mood NL Discharge Home Medications Reviewed and agree with Discharge Medication list on patient's Discharge Instruction sheet Instructions to Patient/Family Please see electronic discharge instructions given to patient. Clinical Quality Measures DVT/VTE Risk/Contraindication: Risk Factor Score Per Nursin RFS Level Per Nursing on Admit: 4+=Very High DRE MCDOWELL DO Jul 14, 2017 5:36 pm
== END 2017-07-14 18:08 | disposition home or self-care (01) | DRG 389 ==
LOC: EDUNIT# 18:44 → ER 18:46 → 4TH 22:00
PROVIDERS: ADMIT Internal Medicine; ATTEND Internal Medicine
DX: K56.600 Partial intestinal obstruction, unspecified as to cause (principal); N39.0 Urinary tract infection, site not specified; I10 Essential (primary) hypertension; K21.9 Gastro-esophageal reflux disease without esophagitis; M19.91 Primary osteoarthritis, unspecified site; H35.30 Unspecified macular degeneration
CPT/HCPCS: 36415; 74000; 74177; 80053; 81000; 82271; 83735; 85025; 87088; 96361; 96365; 96372; 96375; 96376

== ENCOUNTER → 2018-02-11 | Outpatient (CLI) | payer MEDICARE, OTHER ==
[~2018-02-11] MED LIST changes: +AMLO2.5T PO; +ASPI-983 PO; +DOCU100C37 PO; +SENN-148 PO
--- NOTE | 2018-02-11 17:11 | Diagnostic Imaging Report ---
INDICATION: Palpable lump in the upper outer portion of the right breast posterior. COMPARISON: Correlation is made with prior exam from 02/09/2017 and 07/09/2016. EXAMINATION: Bilateral breast digital diagnostic mammogram with CAD. 3D tomographic images were obtained and reviewed. The current study was also evaluated with a Computer Aided Detection (CAD) system. FINDINGS: Bilateral diagnostic mammography was performed including bilateral CC and MLO views as well as right exaggerated CC and ML views. BB markers were placed at the areas of abnormality in the region of the right axilla and upper chest. Only underlying fat is seen at this site. No discrete mass is seen. A benign nodule in the upper right breast is stable. There are scattered benign calcifications. No spiculated mass or malignant appearing microcalcifications are seen. Left axilla is unremarkable. IMPRESSION: BI-RADS 0 No mammographic features suspicious for malignancy are identified. Even so, directed sonographic interrogation of the area of palpable abnormality in the right breast is recommended for further evaluation. Dictated by: Dictated on workstation # [id number]
--- NOTE | 2018-02-11 17:14 | Diagnostic Imaging Report ---
INDICATION: Palpable lump in the right breast. Sonographic interrogation of the area of lump in the right breast was performed. FINDINGS: This correlates to the 12-1 o'clock location. No sonographic abnormality is seen. No solid or cystic mass is detected. IMPRESSION: No sonographic abnormality is identified at the area of palpable abnormality. Continued close clinical and self breast exam is recommended to confirm stability. Negative imaging should not necessarily preclude biopsy of a clinically suspicious palpable abnormality. ACR BI-RADS Category 1: Negative. Dictated by: Dictated on workstation # [id number]
== END ==
LOC: RAD 09:05
PROVIDERS: ATTEND Family Medicine
DX: N63.11 Unspecified lump in the right breast, upper outer quadrant (principal)
CPT/HCPCS: 77066